=== PATIENT | female | born 1945 | race African-American/Black ===

== ENCOUNTER → 2017-03-21 | Outpatient (CLI) | payer MEDICARE ==
--- NOTE | 2017-03-21 10:46 | WOMENS IMAGING REPORT ---
EXAM DESCRIPTION: BILAT SCREENING MAMMO W/CAD COMPLETED DATE/TIME: 03/21/2017 10:29 am REASON FOR STUDY: Z12.31 ROUTINE SCREENING Z12.31 ENCNTR SCREEN MAMMOGRAM FOR MALIGNANT NEOPLASM OF KARRI COMPARISON: Annual priors dating back to November 2009. TECHNIQUE: Standard craniocaudal and mediolateral oblique views of each breast recorded using Equity Endeavora l acquisition. LIMITATIONS: None. FINDINGS: No masses, calcifications or architectural distortion. No areas of suspicion. Read with the assistance of CAD. .[facility] - R2 Cenova Version 1.3 .[facility] - R2 Cenova Version 1.3 .[facility] - R2 Cenova Version 2.4 .[facility]2 Cenova Version 2.4 .[facility] - R2 Solicitor Patent Version 9.2 IMPRESSION: NORMAL MAMMOGRAM. BIRADS 1. BREAST DENSITY: a. The breasts are almost entirely fatty. BIRAD: 1 NEGATIVE RECOMMENDATION: ROUTINE SCREENING COMMENT: The patient has been notified of the results by letter per SA requirements. Additional no tification policies are in place for contacting patient with suspicious or incomplete findings. Quality ID #[id number]: The [employer] recommends an annual screening mammogram for women aged 40 years or over. This facility utilizes a reminder system to ensure that all patients receive reminder letters, and/or direct phone calls for appointments. This includes reminders for routine scr eening mammograms, diagnostic mammograms, or other Breast Imaging Interventions when appropriate. Th is patient will be placed in the appropriate reminder system. The [employer] (ACR) has developed recommendations for screening MRI of the breast s in certain patient populations, to be used in conjunction with mammography. Breast MRI surveillanc e may be appropriate for women with more than 20% lifetime risk of developing breast cancer as deter mined by genetic testing, significant family history of the disease, or history of mantle radiation f or Hodgkins Disease. ACR Practice Guidelines 2008. TECHNICAL DOCUMENTATION: FINDING NUMBER: (1) ASSESSMENT: (1) JOB ID: [id number] Global [employer]- All Rights Reserved
== END ==
LOC: WI 07:44
PROVIDERS: ATTEND Nurse Practitioner Psychiatric/Mental Health
DX: Z12.31 Encounter for screening mammogram for malignant neoplasm of breast (principal)
CPT/HCPCS: 77067; G0202

== ENCOUNTER → 2018-04-02 | Outpatient (CLI) | payer MEDICARE ==
--- NOTE | 2018-04-02 20:01 | WOMENS IMAGING REPORT ---
EXAM DESCRIPTION: 3D SCREENING MAMMO BILAT COMPLETED DATE/TIME: 04/02/2018 8:32 am REASON FOR STUDY: ROUTINE SCREENING;Z12.31 Z12.31 ENCNTR SCREEN MAMMOGRAM FOR MALIGNANT NEOPLASM OF KARRI COMPARISON: Multiple since 2009 TECHNIQUE: Standard craniocaudal and mediolateral oblique views of each breast recorded using digita l acquisition and breast tomosynthesis. LIMITATIONS: None. FINDINGS: Findings present which are benign by mammographic criteria. No suspicious masses, calcifi cations or architectural distortion. Pertinent benign findings: Benign bilateral breast parenchymal and skin calcifications. Read with the assistance of CAD. .[facility] - R2 Cenova Version 1.3 .[facility] - R2 Cenova Version 1.3 .[facility] - R2 Cenova Version 2.4 .[facility] [place] R2 Cenova Version 2.4 .[facility] - R2 Core Maker Version 9.2 Benign mammographic findings may include one or more of the following: Smooth masses, popcorn/rim/co arse calcifications, asymmetries, post-procedure changes, and lesions with long-standing stability. IMPRESSION: BENIGN MAMMOGRAPHIC FINDINGS. BIRADS 2 BREAST DENSITY: b. There are scattered areas of fibroglandular density. BIRAD: 2 BENIGN FINDING(S) RECOMMENDATION: RECOMMENDATION: ROUTINE SCREENING Please continue yearly bilateral screening tomosynthesis in March 2019 COMMENT: The patient has been notified of the results by letter per MQSA requirements. Additional no tification policies are in place for contacting patient with suspicious or incomplete findings. Quality ID #225: The [employer] recommends an annual screening mammogram for women aged 40 years or over. This facility utilizes a reminder system to ensure that all patients receive reminder letters, and/or direct phone calls for appointments. This includes reminders for routine scr eening mammograms, diagnostic mammograms, or other Breast Imaging Interventions when appropriate. Th is patient will be placed in the appropriate reminder system. The [employer] (ACR) has developed recommendations for screening MRI of the breast s in certain patient populations, to be used in conjunction with mammography. Breast MRI surveillanc e may be appropriate for women with more than 20% lifetime risk of developing breast cancer as deter mined by genetic testing, significant family history of the disease, or history of mantle radiation f or Hodgkins Disease. ACR Practice Guidelines 2008. DBT Technology DBT is a type of tomographic mammography. With conventional mammography, overlapping breast tissue ma y make lesions difficult to detect, even with good compression. DBT uses an x-ray tube that rotates a round the breast, taking images at different angles. These images are then combined to create thin sl ices of the breast that the radiologist can view as a 3D reconstruction. The FanGager (MyBrandz) unit can perform full-field digital mammograms (2D imaging); or DBT (3D imaging); or both, in a combination mode that quickly performs both the mammogram and the tomosynthesis scan while the breast is still compressed. PQRS 6045F: Fluoroscopic imaging is not utilized for breast tomosynthesis. TECHNICAL DOCUMENTATION: FINDING NUMBER: (1) ASSESSMENT: (1) JOB ID: [id number] [employer]- All Rights Reserved Reading location - IP/workstation name: [email or web address]
== END ==
LOC: WI 08:20
PROVIDERS: ATTEND Internal Medicine Geriatric Medicine
DX: Z12.31 Encounter for screening mammogram for malignant neoplasm of breast (principal)
CPT/HCPCS: 77063; 77067

== ENCOUNTER → 2019-04-08 | Outpatient (CLI) | payer MEDICAID, MEDICARE ==
--- NOTE | 2019-04-08 16:03 | WOMENS IMAGING REPORT ---
EXAM DESCRIPTION: 3D SCREENING MAMMO BILAT COMPLETED DATE/TIME: 04/08/2019 9:56 am REASON FOR STUDY: Z12.31 ROUTINE 3D BILATERAL SCREENING Z12.31 ENCNTR SCREEN MAMMOGRAM FOR MALIGNAN T NEOPLASM OF KARRI COMPARISON: multiple since 2009 EXAM PARAMETERS: Standard craniocaudal and mediolateral oblique views of each breast recorded using digital acquisition and breast tomosynthesis. Read with the assistance of CAD. .[facility] - Synosure Games Hydrostatic Tubing Tester Version 9.2 LIMITATIONS: None. FINDINGS: Findings present which are benign by mammographic criteria. No suspicious masses, calcific ations or architectural distortion. Pertinent benign findings: Stable benign bilateral breast parenchymal calcifications Benign mammographic findings may include one or more of the following: Smooth masses, popcorn/rim/coa rse calcifications, asymmetries, post-procedure changes, and lesions with long-standing stability. IMPRESSION: BENIGN MAMMOGRAPHIC FINDINGS. BIRADS 2 BREAST DENSITY: a. The breasts are almost entirely fatty. BIRAD: ASSESSMENT: 2 BENIGN FINDING(S) RECOMMENDATION: ROUTINE SCREENING COMMENT: The patient has been notified of the results by letter per SA requirements. Additional no tification policies are in place for contacting patient with suspicious or incomplete findings. Quality ID #225: The [employer] recommends an annual screening mammogram for women aged 40 years or over. This facility utilizes a reminder system to ensure that all patients receive reminder letters, and/or direct phone calls for appointments. This includes reminders for routine scr eening mammograms, diagnostic mammograms, or other Breast Imaging Interventions when appropriate. Th is patient will be placed in the appropriate reminder system. TECHNICAL DOCUMENTATION: FINDING NUMBER: (1) ASSESSMENT: (1) JOB ID: [id number] 3D [employer]- All Rights Reserved Reading location - IP/workstation name: [email or web address]
== END ==
LOC: WI 09:04
PROVIDERS: ATTEND Internal Medicine Geriatric Medicine
DX: Z12.31 Encounter for screening mammogram for malignant neoplasm of breast (principal)
CPT/HCPCS: 77063; 77067

== ENCOUNTER → 2019-08-06 | Outpatient (CLI) | payer MEDICARE ==
[2019-08-06 14:03] LABS: ANION GAP 8 (5-19); BLOOD UREA NITROGEN 23 mg/dL (7-20); CALCIUM 9.5 mg/dL (8.4-10.2); CARBON DIOXIDE 30 mmol/L (22-30); CHLORIDE 102 mmol/L (98-107); GLUCOSE 151 mg/dL (75-110); POTASSIUM 4.3 mmol/L (3.6-5.0)
== END ==
LOC: OD 12:45
PROVIDERS: ATTEND Internal Medicine Geriatric Medicine
DX: N17.9 Acute kidney failure, unspecified (principal)
CPT/HCPCS: 36415; 80048

== ENCOUNTER → 2019-08-11 | Outpatient (CLI) | payer MEDICARE ==
--- NOTE | 2019-08-11 16:31 | RADIOLOGY REPORT (SQ) ---
EXAM DESCRIPTION: U/S RETROPERITON (RENAL/AORTA) COMPLETED DATE/TIME: 08/11/2019 4:23 pm REASON FOR STUDY: N17.9 ACUTE KIDNEY FAILURE, UNSPECIFIED N17.9 ACUTE KIDNEY FAILURE, UNSPECIFIED COMPARISON: None. TECHNIQUE: Dynamic and static grayscale images acquired of the kidneys and bladder and recorded on P ACS. Additional selected color Doppler and spectral images recorded. LIMITATIONS: None. FINDINGS: RIGHT KIDNEY: The right kidney measures 9.6 cm in length. Normal echogenicity. No roger id or suspicious masses. No hydronephrosis. No calcifications. LEFT KIDNEY: The left kidney measures 10 cm in length. Normal echogenicity. No solid or suspicio us masses. No hydronephrosis. There is a small cyst off the inferior pole. Largest diameter is 1 .8 cm. No stones. BLADDER: No masses. OTHER FINDINGS: No other significant finding. IMPRESSION: Small left renal cyst. No other significant findings. TECHNICAL DOCUMENTATION: JOB ID: [id number] [employer]- All Rights Reserved Reading location - IP/workstation name: [email or web address]
== END ==
LOC: RAD 15:13
PROVIDERS: ATTEND Internal Medicine Geriatric Medicine
DX: N17.9 Acute kidney failure, unspecified (principal); N28.1 Cyst of kidney, acquired
CPT/HCPCS: 76770

== ENCOUNTER → 2019-09-08 | Outpatient (CLI) | payer MEDICARE, MEDICAID ==
--- NOTE | 2019-09-09 08:54 | RADIOLOGY REPORT (SQ) ---
EXAM DESCRIPTION: CT ABD/PELVIS WITH IV ORAL COMPLETED DATE/TIME: 09/08/2019 4:01 pm REASON FOR STUDY: R10.32 LEFT LOWER QUADRANT PAIN R10.32 LEFT LOWER QUADRANT PAIN COMPARISON: Renal ultrasound 08/11/2019 Right upper quadrant ultrasound 08/14/2015 TECHNIQUE: CT scan of the abdomen and pelvis performed using helical scanning technique with dynamic intravenous contrast injection. Patient drank oral contrast. Images reviewed with lung, soft tissue , and bone windows. Reconstructed coronal and sagittal MPR images reviewed. Delayed images for evalua tion of the urinary system also acquired. All images stored on PACS. All CT scanners at this facility use dose modulation, iterative reconstruction, and/or weight based d osing when appropriate to reduce radiation dose to as low as reasonably achievable (ALARA). [facility]: Dose Right [facility]: CareDose [facility]: Dose Right [facility]: Teradose 4D [facility]: Chalkfly CONTRAST TYPE AND DOSE: contrast/concentration: Isovue 350.00 mg/ml; Total Contrast Delivered: 94.0 ml; Total Saline Delivered: 71.0 ml RENAL FUNCTION: Creatinine 0.9 RADIATION DOSE: CT Rad equipment meets quality standard of care and radiation dose reduction techniq ues were employed. CTDIvol: 19.3 - 19.4 mGy. DLP: 1901 mGy-cm.. LIMITATIONS: None. FINDINGS: LOWER CHEST: No significant findings. No nodules or infiltrates. LIVER: Normal size. No masses. No dilated ducts. SPLEEN: Normal size. No focal lesions. PANCREAS: No masses. No significant calcifications. No adjacent inflammation or peripancreatic fluid collections. Pancreatic duct not dilated. GALLBLADDER: No identified stones by CT criteria. No inflammatory changes to suggest cholecystitis. ADRENAL GLANDS: No significant masses or asymmetry. RIGHT KIDNEY AND URETER: No solid masses. No significant calcifications. No hydronephrosis or hyd roureter. LEFT KIDNEY AND URETER: No solid masses. Less than 1 cm cyst left mid pole kidney, 2 cm diameter cys t left lower pole kidney. No significant calcifications. No hydronephrosis or hydroureter. AORTA AND VESSELS: No aneurysm. No dissection. Renal arteries, SMA, celiac without stenosis. RETROPERITONEUM: No retroperitoneal adenopathy, hemorrhage or masses. BOWEL AND PERITONEAL CAVITY: Patient drank oral contrast. No masses or inflammatory changes. No yao e fluid or peritoneal masses. No bowel obstruction. Moderate stool throughout the colon. APPENDIX: Normal. PELVIS: No mass. No free fluid. Normal bladder. Post hysterectomy and right oophorectomy. Normal s ize left ovary adjacent to the left internal iliac vessels on axial image 63 ABDOMINAL WALL: No masses. No hernias. BONES: Advanced degenerative disc changes with significant central canal stenosis at L1-2 and L3-4. OTHER: No other significant finding. IMPRESSION: Advanced degenerative changes in the lumbar spine. Post hysterectomy and right oophorectomy. Left renal cortical cysts. Otherwise unremarkable study. TECHNICAL DOCUMENTATION: JOB ID: [id number] Quality ID # [id number]: Final reports with documentation of one or more dose reduction techniques (e.g., Au tomated exposure control, adjustment of the mA and/or kV according to patient size, use of iterative reconstruction technique) 2010 [employer]- All Rights Reserved Reading location - IP/workstation name: [email or web address]
== END ==
LOC: RAD 15:09
PROVIDERS: ATTEND Internal Medicine Geriatric Medicine
DX: N28.1 Cyst of kidney, acquired (principal); R10.32 Left lower quadrant pain
CPT/HCPCS: 74177; 82565

== ENCOUNTER → 2019-09-28 | Outpatient (CLI) | payer MEDICAID, MEDICARE ==
--- NOTE | 2019-09-28 13:10 | RADIOLOGY REPORT (SQ) ---
EXAM DESCRIPTION: CAROTID DOPPLER COMPLETED DATE/TIME: 09/28/2019 12:18 pm REASON FOR STUDY: PVD I73.9 PERIPHERAL VASCULAR DISEASE, UNSPECIFIED COMPARISON: None. TECHNIQUE: Grayscale ultrasound, Doppler velocity and spectra, and color Doppler images acquired of the extra-cranial carotid and vertebral arteries. Images stored on PACS. LIMITATIONS: None. FINDINGS: RIGHT CAROTID CCA Velocities: Within normal limits. ICA Velocities Peak systolic 56 cm/s. End diastolic 20 cm/s. Proximal ICA/CCA peak systolic ratio 1.07. Spectra normal. No significant plaque. LEFT CAROTID CCA Velocities: Within normal limits. ICA Velocities Peak systolic 38 cm/s. End diastolic 13 cm/s. Proximal ICA/CCA peak systolic ratio 0.9. Spectra normal. No significant plaque. VERTEBRAL ARTERIES: Antegrade flow. Normal waveform. SUBCLAVIAN ARTERIES: Not imaged OTHER: No other significant finding. IMPRESSION: NO HEMODYNAMICALLY SIGNIFICANT STENOSIS. COMMENT: Quality ID #195: Velocity criteria are extrapolated from the diameter data as defined by t he Society of Radiologists in Ultrasound Consensus Conference. Radiology 2003: 229; 340-346. TECHNICAL DOCUMENTATION: JOB ID: [id number] [employer]- All Rights Reserved Reading location - IP/workstation name: [email or web address]
--- NOTE | 2019-09-29 07:19 | XCELERA REPORT ---
[address] [address] Lower Extremity Arterial Evaluation Name: KUMAR BENJAMIN Age: 73 yrs Gender: Female : 1945 Patient Status: Outpatient Patient Location: [facility] Study Date: 09/28/2019 12:15 PM Procedure: A color flow and duplex scan of the lower extremity arteries was performed bilaterally with velocity and waveform anaylsis. Reason For Study: PVD Ordering Physician: IVAN WHEELER Performed By: Ashley Riley Measurements and Calculations Right Left Prox PFA PSV 70.2 67.2 cm/sec Prox SFA PSV 77.5 89.0 cm/sec Mid SFA PSV 77.2 91.1 cm/sec Dist SFA PSV 85.2 83.0 cm/sec Prox Pop A PSV 55.7 81.2 cm/sec Mid MARIANO PSV 90.4 67.8 cm/sec Mid COATER PSV 40.3 32.9 cm/sec Right Side Arterial Evaluation Vessel wall calcification in the Femoral and Posterior tibial arteries noted Normal velocity and triphasic waveforms noted from the Common Femoral artery to the infrageniculate vessels . Biphasic with normal velocity in the Deep Femoral . Ankle Brachial index not obtained. Left Side Arterial Evaluation Vessel wall calcification in the Femoral and Posterior tibial arteries noted Normal velocity and triphasic waveforms noted from the Common Femoral artery to the infrageniculate vessels . Biphasic with normal velocity in the Deep Femoral . Ankle Brachial index not obtained. Interpretation Summary Mild hemodynamically significant lesions in the bilateral lower extremities, on duplex imaging, at rest. Duplex findings significant for mild changes in the Deep Femoral. Vessel wall calcification in the Femoral and Posterior tibial arteries noted.. indicating Atherosclerosis. : IVAN WHEELER > Mark Chau
== END ==
LOC: SP 10:36
PROVIDERS: ATTEND Internal Medicine Geriatric Medicine
DX: I73.9 Peripheral vascular disease, unspecified (principal)
CPT/HCPCS: 93880; 93925

== ENCOUNTER 2019-12-05 13:42 | Emergency (ER) | payer MEDICARE ==
--- NOTE | 2019-12-05 13:50 | ER Document Report ---
ED Medical Screen (RME) - General Chief Complaint: Back Pain Stated Complaint: BACK PAIN Time Seen by Provider: 12/05/19 13:48 Primary Care Provider: IVAN WHEELER MD [Primary Care Provider] - Follow up as needed Notes: 74 y/o female presents with left flank pain, odor to urine, nausea/vomiting, and malaise for 1 week. Pt states she has chronic low back pain but it is usually in the middle. No spinal tenderness. Mild left CVA tenderness. Abd soft, nontender. I have greeted and performed a rapid initial assessment of this patient. A comprehensive ED assessment and evaluation of the patient, analysis of test results and completion of the medical decision making process with be conducted by additional ED providers. TRAVEL OUTSIDE OF THE [place] IN LAST 30 DAYS: No - Related Data Allergies/Adverse Reactions: codeine [Codeine] Adverse Reaction (Severe, Verified 12/05/19 13:49) Vomiting aspirin [Aspirin] Adverse Reaction (Intermediate, Verified 12/05/19 13:49) Vomiting hydrocodone [Hydrocodone] Adverse Reaction (Intermediate, Verified 12/05/19 13:49) nausea vomitting lisinopril [Lisinopril] Adverse Reaction (Intermediate, Verified 12/05/19 13:49) sneezing coughing rosuvastatin calcium [From Crestor] Adverse Reaction (Intermediate, Verified 12/05/19 13:49) muscle weakness Sulfa (Sulfonamide Antibiotics) Adverse Reaction (Intermediate, Verified 12/05/19 13:49) Vomiting Past Medical History - Past Medical History Cardiac Medical History: Reports: Hx Hypertension Denies: Hx Coronary Artery Disease, Hx Heart Attack Pulmonary Medical History: Reports: Hx Bronchitis Denies: Hx Asthma, Hx COPD, Hx Pneumonia Neurological Medical History: Denies: Hx Cerebrovascular Accident, Hx Seizures Endocrine Medical History: Reports: Hx Diabetes Mellitus Type 2 GI Medical History: Denies: Hx Hepatitis, Hx Hiatal Hernia, Hx Ulcer Musculoskeltal Medical History: 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 Denies: Hx Mastectomy, Hx Open Heart Surgery, Hx Pacemaker - Immunizations Hx Diphtheria, Pertussis, Tetanus Vaccination: Yes Doctor's Discharge - Discharge Referrals: IVAN WHEELER MD [Primary Care Provider] - Follow up as needed
[2019-12-05 14:18] LABS: ABSOLUTE BASOPHILS # (AUTO) 0.1 10^3/uL (0.0-0.2); ABSOLUTE EOSINOPHILS # (AUTO) 0.2 10^3/uL (0.0-0.6); ABSOLUTE LYMPHOCYTES (AUTO) 2.7 10^3/uL (0.5-4.7); ABSOLUTE MONOCYTES (AUTO) 0.7 10^3/uL (0.1-1.4); BASOPHILS % (AUTO) 1.3 % (0-2); EOSINOPHILS % (AUTO) 2.2 % (0-6); HEMATOCRIT 39.3 % (36.0-47.0); HEMOGLOBIN 13.6 g/dL (12.0-15.5); LYMPHOCYTES % (AUTO) 35.5 % (13-45); MEAN CORPUSCULAR HEMOGLOBIN 29.4 pg (27.0-33.4); MEAN CORPUSCULAR HGB CONC 34.6 g/dL (32.0-36.0); MEAN CORPUSCULAR VOLUME 85 fl (80-97); MONOCYTES % (AUTO) 9.1 % (3-13); PLATELET COUNT 238 10^3/uL (150-450); RED BLOOD COUNT 4.63 10^6/uL (3.72-5.28); RED CELL DISTRIBUTION WIDTH 12.7 % (11.5-14.0); SEGMENTED NEUTROPHILS % (AUTO) 51.9 % (42-78); TOTAL CELLS COUNTED % (AUTO) 100 %; WHITE BLOOD COUNT 7.7 10^3/uL (4.0-10.5)
--- NOTE | 2019-12-05 14:21 | ER Document Report ---
ED General - General Chief Complaint: Flank Pain Stated Complaint: BACK PAIN Time Seen by Provider: 12/05/19 13:48 Primary Care Provider: IVAN WHEELER MD [Primary Care Provider] - Follow up as needed Mode of Arrival: Ambulatory Information source: Patient Notes: 74-year-old female with chief complaint of 1 week history of left hip pain left flank pain with radiation down left lower extremity and arrives with her sister and daughter with chief complaint of pain to her left flank which increases on inspiration rotation flexion extension of her torso. Patient denies any trauma abuse or kidney stones. Her grandmother did have kidney stones beginning when she was 40 but patient denies any prior history of kidney stones in the past. She denies any dysuria and denies any hematuria and denies any fever and chills TRAVEL OUTSIDE OF THE [place] IN LAST 30 DAYS: No - HPI Onset: This morning - Patient reports the pain awoke her at 05 30 despite 3 Tylenol extended release tablets and Aleve; was initially began around 1 week ago but have worsened. Quality of pain: Sharp Severity: Severe Pain Level: 5 Associated symptoms: Hurts to breath, Other - Pain on movement of left flank extension flexion rotation left CVA area Exacerbated by: Sitting, Standing, Movement, Walking, Deep breathing Relieved by: Remaining still Similar symptoms previously: No Recently seen / treated by doctor: No - Related Data Allergies/Adverse Reactions: codeine [Codeine] Adverse Reaction (Severe, Verified 12/05/19 13:49) Vomiting aspirin [Aspirin] Adverse Reaction (Intermediate, Verified 12/05/19 13:49) Vomiting hydrocodone [Hydrocodone] Adverse Reaction (Intermediate, Verified 12/05/19 13:49) nausea vomitting lisinopril [Lisinopril] Adverse Reaction (Intermediate, Verified 12/05/19 13:49) sneezing coughing rosuvastatin calcium [From Crestor] Adverse Reaction (Intermediate, Verified 12/05/19 13:49) muscle weakness Sulfa (Sulfonamide Antibiotics) Adverse Reaction (Intermediate, Verified 12/05/19 13:49) Vomiting Home Medications: levocetrizine. irbesartan. metformin. rosuvastatin. januvia. omeprazole. meclizine Past Medical History - General Information source: Patient - Social History Smoking Status: Never Smoker Cigarette use (# per day): No Chew tobacco use (# tins/day): No Smoking Education Provided: No Frequency of alcohol use: None Drug Abuse: None Lives with: Family Family History: Reviewed & Not Pertinent Patient has suicidal ideation: No Patient has homicidal ideation: No - Past Medical History Cardiac Medical History: Reports: Hx Hypertension Denies: Hx Coronary Artery Disease, Hx Heart Attack Pulmonary Medical History: Reports: Hx Bronchitis Denies: Hx Asthma, Hx COPD, Hx Pneumonia Neurological Medical History: Denies: Hx Cerebrovascular Accident, Hx Seizures Endocrine Medical History: Reports: Hx Diabetes Mellitus Type 2 GI Medical History: Denies: Hx Hepatitis, Hx Hiatal Hernia, Hx Ulcer Musculoskeletal Medical History: 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 Denies: Hx Mastectomy, Hx Open Heart Surgery, Hx Pacemaker - Immunizations Hx Diphtheria, Pertussis, Tetanus Vaccination: Yes Hx Pneumococcal Vaccination: 07/20/15 Review of Systems - Review of Systems Constitutional: See HPI, Weakness EENT: No symptoms reported Cardiovascular: No symptoms reported Respiratory: No symptoms reported Gastrointestinal: No symptoms reported Genitourinary: No symptoms reported Female Genitourinary: No symptoms reported Musculoskeletal: See HPI, Back pain, Other - left cva pain Skin: No symptoms reported Hematologic/Lymphatic: No symptoms reported Neurological/Psychological: No symptoms reported Physical Exam - Vital signs Interpretation: Normal - General General appearance: Alert In distress: Mild - HEENT Head: Normocephalic Eyes: Normal Conjunctiva: Normal Cornea: Normal Extraocular movements intact: Yes Eyelashes: Normal Pupils: PERRL Ears: Normal Sinus: Normal Nasal: Normal Mouth/Lips: Normal Mucous membranes: Normal Pharynx: Normal Neck: Normal - Respiratory Respiratory status: No respiratory distress Chest status: Nontender Breath sounds: Normal Chest palpation: Normal - Cardiovascular Rhythm: Regular Heart sounds: Normal auscultation Murmur: No Friction rub: No Doug's crunch: No - Abdominal Inspection: Normal Distension: No distension Bowel sounds: Normal Tenderness: Nontender Organomegaly: No organomegaly - Back Back: Normal - Extremities General upper extremity: Normal inspection General lower extremity: Normal inspection - Neurological Neuro grossly intact: Yes Cognition: Normal Orientation: AAOx4 Sofya Coma Scale Eye Opening: Spontaneous Brownell Coma Scale Verbal: Oriented Sofya Coma Scale Motor: Obeys Commands Brownell Coma Scale Total: 15 Speech: Normal Cranial nerves: Normal Motor strength normal: LUE, RUE, LLE, RLE 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 Sensory: Normal Course - Laboratory Result Diagrams: 12/05/19 14:07 12/05/19 14:07 Laboratory results interpreted by me: 12/05/19 12/05/19 14:07 14:07 Glucose 155 H AST 51 H ALT 56 H Urine Protein 30 H Urine Glucose (UA) 50 H Urine Nitrite (Reflex) POSITIVE H Leukocyte Esterase Rfl TRACE H Urine Ascorbic Acid 40 H - Diagnostic Test Radiology reviewed: Reports reviewed Critical Care Note - Critical Care Note Total time excluding time spent on procedures (mins): 90 Discharge - Discharge Clinical Impression: Flank pain Muscle strain of left upper back Qualifiers: Encounter type: initial encounter Qualified Code(s): S29.012A - Strain of muscle and tendon of back wall of thorax, initial encounter Condition: Good Disposition: HOME, SELF-CARE Additional Instructions: follow up with personal doctor this week and avoid bending twisting ; take medicines as directed Prescriptions: Diclofenac Sodium 100 gm TP BID PRN #100 gel..gram. PRN Reason: Chlorzoxazone [Parafon Forte Dsc 500 Mg Tablet] 500 mg PO BID PRN #20 tablet PRN Reason: Referrals: IVAN WHEELER MD [Primary Care Provider] - Follow up as needed
[2019-12-05] MEDS ORDERED: KETOROLAC TROMETHAMINE 60 MG/2 ML SDV IM ONE (14:30)
[2019-12-05] MEDS ORDERED: DEXAMETHASONE SOD PHOS INJ 10 MG/1 ML VIAL IM ONE (14:31)
[2019-12-05 14:33] LABS: ALBUMIN 4.2 g/dL (3.5-5.0); ALKALINE PHOSPHATASE 99 U/L (38-126); ANION GAP 7 (5-19); ASPARTATE AMINO TRANSFERASE 51 U/L (14-36); BILIRUBIN,DIRECT 0.1 mg/dL (0.0-0.4); BILIRUBIN,TOTAL 0.5 mg/dL (0.2-1.3); BLOOD UREA NITROGEN 15 mg/dL (7-20); CALCIUM 9.6 mg/dL (8.4-10.2); CARBON DIOXIDE 30 mmol/L (22-30); CHLORIDE 102 mmol/L (98-107); GLUCOSE 155 mg/dL (75-110); POTASSIUM 4.2 mmol/L (3.6-5.0)
[2019-12-05] MEDS ORDERED: HYDROMORPHONE HCL INJ/PF 2 MG/ML AMPULE IM PRN (14:33)
[2019-12-05] MEDS ORDERED: PROMETHAZINE HCL INJ 25 MG/1 ML VIAL IM ONE (14:34)
[2019-12-05 14:47] LABS: APPEARANCE,URINE SLIGHTLY-CLOUDY; BILIRUBIN,URINE NEGATIVE (NEGATIVE); COLOR,URINE YELLOW; GLUCOSE, URINE 50 mg/dL (NEGATIVE); KETONES,URINE NEGATIVE (NEGATIVE); PROTEIN,URINE 30 mg/dL (NEGATIVE); URINE SPECIFIC GRAVITY 1.018; UROBILINOGEN,URINE NEGATIVE mg/dL (<2.0)
[2019-12-05] MEDS ORDERED: HYDROMORPHONE HCL INJ/PF 2 MG/ML AMPULE IV PRN (15:18)
[2019-12-05] MEDS ORDERED: DEXAMETHASONE SOD PHOS INJ 10 MG/1 ML VIAL IV ONE (15:22)
[2019-12-05] MEDS ORDERED: PROMETHAZINE HCL INJ 25 MG/1 ML VIAL IV ONE (15:22)
[2019-12-05] MEDS ORDERED: KETOROLAC TROMETHAMINE INJ/PF 30 MG/1 ML SDV IV ONE (15:22)
--- NOTE | 2019-12-05 15:31 | RADIOLOGY REPORT (SQ) ---
EXAM DESCRIPTION: CT ABD/PELVIS NO ORAL OR IV COMPLETED DATE/TIME: 12/05/2019 3:15 pm REASON FOR STUDY: pain COMPARISON: 2019 TECHNIQUE: CT scan of the abdomen and pelvis performed without intravenous or oral contrast. Images reviewed with lung, soft tissue, and bone windows. Reconstructed coronal and sagittal MPR images revi ewed. All images stored on PACS. All CT scanners at this facility use dose modulation, iterative reconstruction, and/or weight based d osing when appropriate to reduce radiation dose to as low as reasonably achievable (ALARA). [facility]: Dose Right [facility]: CareDose [facility]: Dose Right [facility]: Teradose 4D [facility]: [employer] RADIATION DOSE: CT Rad equipment meets quality standard of care and radiation dose reduction techniq ues were employed. CTDIvol: 16.6 mGy. DLP: 825 mGy-cm.mGy. LIMITATIONS: None. FINDINGS: LOWER CHEST: No significant findings. No nodules or infiltrates. NON-CONTRASTED LIVER, SPLEEN, ADRENALS: Evaluation limited by lack of IV contrast. No identified sign ificant masses. PANCREAS: No masses. No peripancreatic inflammatory changes. GALLBLADDER: No identified stones by CT criteria. No inflammatory changes to suggest cholecystitis. RIGHT KIDNEY AND URETER: No solid masses. No significant calcification. No hydronephrosis or hydroure ter. LEFT KIDNEY AND URETER: No solid masses. No significant calcification. No hydronephrosis or hydrouret er. AORTA AND RETROPERITONEUM: No aneurysm. No retroperitoneal masses or adenopathy. BOWEL AND PERITONEAL CAVITY: Moderate stool. No wall thickening or bowel obstruction. No ascites or abnormal gas. APPENDIX: Normal. PELVIS, BLADDER, AND ABDOMINAL WALL:No abnormal masses. No free fluid. Bladder normal. BONES: Pronounced lumbar spondylosis. Scoliosis with disc and facet disease throughout. No fracture or worrisome bone lesion. OTHER: No other significant finding. IMPRESSION: NO SIGNIFICANT OR ACUTE PROCESS IN THE ABDOMEN OR PELVIS. TECHNICAL DOCUMENTATION: JOB ID: [id number] Quality ID # [id number]: Final reports with documentation of one or more dose reduction techniques (e.g., Au tomated exposure control, adjustment of the mA and/or kV according to patient size, use of iterative reconstruction technique) 2010 [employer]- All Rights Reserved Reading location - IP/workstation name: [email or web address]
--- NOTE | 2019-12-05 15:32 | RADIOLOGY REPORT (SQ) ---
EXAM DESCRIPTION: HIP LEFT AP/LATERAL COMPLETED DATE/TIME: 12/05/2019 3:15 pm REASON FOR STUDY: pain COMPARISON: None. NUMBER OF VIEWS: Two views left hip LIMITATIONS: None. FINDINGS: Osteopenic. SI joints intact. Mild right hip joint space narrowing. Mild degenerative s purring in the left acetabulum. Mild osteitis pubis. No fracture or bone lesion. OTHER: No other significant finding. IMPRESSION: As above. TECHNICAL DOCUMENTATION: JOB ID: [id number] Reading location - IP/workstation name: [email or web address]
[2019-12-05 17:52] VITALS: BP 155/71
== END 2019-12-05 17:52 | disposition home or self-care (01) ==
LOC: ER 13:42
DX: S29.012A Strain of muscle and tendon of back wall of thorax, initial encounter (principal); R10.9 Unspecified abdominal pain; M54.9 Dorsalgia, unspecified; M25.552 Pain in left hip; M79.605 Pain in left leg; X58.XXXA Exposure to other specified factors, initial encounter; I10 Essential (primary) hypertension; E11.9 Type 2 diabetes mellitus without complications; Z88.8 Allergy status to other drugs, medicaments and biological substances; Z88.2 Allergy status to sulfonamides
CPT/HCPCS: 36415; 83690; 85025; 80053; 81001; 73502; 74176; J1885; J2550; J1100; 96374; 96375; 99291; 99292

== ENCOUNTER → 2020-04-01 | Outpatient (CLI) | payer MEDICARE ==
--- NOTE | 2020-04-01 11:54 | RADIOLOGY REPORT (SQ) ---
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 TECHNIQUE: CT scanogram of the bilateral lower extremities is performed including pelvis to ankles. Measurements of femur, tibia, and entire lower extremities performed by the radiologist and saved to PACS. All CT scanners at this facility use dose modulation, iterative reconstruction, and/or weight based d osing when appropriate to reduce radiation dose to as low as reasonably achievable (ALARA). [facility]: Dose Right [facility]: CareDose [facility]: Dose Right [facility]: Teradose 4D [facility]: [employer] RADIATION DOSE: mGy. LIMITATIONS: None. FINDINGS: RIGHT: FEMUR: 39.1 cm. TIBIA: 32.8 cm. TOTAL RIGHT LOWER EXTREMITY LENGTH: 72.1 cm. LEFT: FEMUR: 39.5 cm. TIBIA: 32.7 cm. TOTAL LEFT LOWER EXTREMITY LENGTH: 72.5 cm. IMPRESSION: LEG LENGTH MEASUREMENTS DETAILED ABOVE. TECHNICAL DOCUMENTATION: JOB ID: [id number] Quality ID # [id number]: Final reports with documentation of one or more dose reduction techniques (e.g., Au tomated exposure control, adjustment of the mA and/or kV according to patient size, use of iterative reconstruction technique) 2010 [employer]- All Rights Reserved Reading location - IP/workstation name: [email or web address]
== END ==
LOC: RAD 10:10
PROVIDERS: ATTEND Podiatrist Foot & Ankle Surgery
DX: Q72.819 Congenital shortening of unspecified lower limb (principal)
CPT/HCPCS: 77073

== ENCOUNTER 2020-04-17 12:53 | Inpatient (IN) | payer MEDICARE ==
[2020-04-17 15:45] LABS: ABSOLUTE LYMPHOCYTES (AUTO) 1.5 10^3/uL (0.5-4.7); ABSOLUTE MONOCYTES (AUTO) 0.7 10^3/uL (0.1-1.4); BASOPHILS % (AUTO) 0.8 % (0-2); LYMPHOCYTES % (AUTO) 23.7 % (13-45); MEAN CORPUSCULAR HEMOGLOBIN 28.7 pg (27.0-33.4); MEAN CORPUSCULAR HGB CONC 34.3 g/dL (32.0-36.0); MEAN CORPUSCULAR VOLUME 84 fl (80-97); MONOCYTES % (AUTO) 10.6 % (3-13); PLATELET COUNT 179 10^3/uL (150-450); RED BLOOD COUNT 4.54 10^6/uL (3.72-5.28); RED CELL DISTRIBUTION WIDTH 13.2 % (11.5-14.0); SEGMENTED NEUTROPHILS % (AUTO) 64.9 % (42-78); TOTAL CELLS COUNTED % (AUTO) 100 %; WHITE BLOOD COUNT 6.1 10^3/uL (4.0-10.5)
[2020-04-17 16:00] LABS: ALKALINE PHOSPHATASE 70 U/L (38-126); ANION GAP 9 (5-19); ASPARTATE AMINO TRANSFERASE 39 U/L (14-36); BILIRUBIN,TOTAL 0.5 mg/dL (0.2-1.3); BLOOD UREA NITROGEN 19 mg/dL (7-20); CALCIUM 8.9 mg/dL (8.4-10.2); CARBON DIOXIDE 32 mmol/L (22-30); CHLORIDE 95 mmol/L (98-107); GLUCOSE 85 mg/dL (75-110); POTASSIUM 3.8 mmol/L (3.6-5.0); TOTAL PROTEIN 7.8 g/dL (6.3-8.2)
--- NOTE | 2020-04-17 16:08 | RADIOLOGY REPORT (SQ) ---
EXAM DESCRIPTION: CHEST SINGLE VIEW IMAGES COMPLETED DATE/TIME: 04/17/2020 4:00 pm REASON FOR STUDY: shortness of breath COMPARISON: None. EXAM PARAMETERS: NUMBER OF VIEWS: One view. TECHNIQUE: Single frontal radiographic view of the chest acquired. RADIATION DOSE: NA LIMITATIONS: Low lung volumes. FINDINGS: LUNGS AND PLEURA: Minimal airspace disease in the periphery of the left upper lobe. Lung moses are otherwise clear. Elevated right hemidiaphragm. MEDIASTINUM AND HILAR STRUCTURES: No masses. Contour normal. HEART AND VASCULAR STRUCTURES: Heart normal in size. Normal vasculature. BONES: No acute findings. HARDWARE: None in the chest. OTHER: No other significant finding. IMPRESSION: Mild asymmetric airspace disease in the periphery of the left upper lobe. Low lung volu mes. TECHNICAL DOCUMENTATION: JOB ID: [id number] 2010 [employer]- All Rights Reserved Reading location - IP/workstation name: [email or web address]
[2020-04-17 16:11] LABS: CREATINE KINASE MB 1.32 ng/mL (<4.55)
[2020-04-17 16:14] LABS: TROPONIN I 0.202 ng/mL
[2020-04-17] MEDS ORDERED: ASPIRIN 81 MG TABLET, CHEWABLE PO ONE (16:36)
[2020-04-17] MEDS ORDERED: ASPIRIN 81 MG TABLET, CHEWABLE ONE (16:37)
--- NOTE | 2020-04-17 17:34 | EKG REPORT ---
SEVERITY:- ABNORMAL ECG - SINUS RHYTHM CONSIDER LEFT VENTRICULAR HYPERTROPHY : Confirmed by: Belkis Zambrano MD 17-Apr-2020 17:33:29
[2020-04-17] MEDS ORDERED: AZITHROMYCIN 250 MG TABLET PO ONE (18:39)
[2020-04-17] MEDS ORDERED: CEFTRIAXONE 2 GM/D5W RTU 2 GM/50 ML RTUPB IV ONE (18:39)
--- NOTE | 2020-04-17 18:45 | ER Document Report ---
ED General - General Chief Complaint: Breathing Difficulty Stated Complaint: SHORTNESS OF BREATH Time Seen by Provider: 04/17/20 18:01 Primary Care Provider: ROGER FOUNTAIN DPM [Primary Care Provider] - Follow up as needed Mode of Arrival: Ambulatory Information source: Patient TRAVEL OUTSIDE OF THE [place] IN LAST 30 DAYS: No - HPI Notes: Patient presents with cough cold congestion and fever. She also has generalized body aches and weakness. This is been going on for approximately 3 to 4 days. She has no known COVID virus exposures but she was recently at a within the last week with many out-of-town visitors. Her body aches are generalized. They are mild to moderate. They radiate throughout her body. They are worse with movement and better with rest. She is also had a nonproductive cough. - Related Data Allergies/Adverse Reactions: codeine [Codeine] Adverse Reaction (Severe, Verified 12/05/19 13:49) Vomiting aspirin [Aspirin] Adverse Reaction (Intermediate, Verified 12/05/19 13:49) Vomiting hydrocodone [Hydrocodone] Adverse Reaction (Intermediate, Verified 12/05/19 13:49) nausea vomitting lisinopril [Lisinopril] Adverse Reaction (Intermediate, Verified 12/05/19 13:49) sneezing coughing rosuvastatin calcium [From Crestor] Adverse Reaction (Intermediate, Verified 12/05/19 13:49) muscle weakness Sulfa (Sulfonamide Antibiotics) Adverse Reaction (Intermediate, Verified 12/05/19 13:49) Vomiting Past Medical History - General Information source: Patient - Social History Smoking Status: Never Smoker Frequency of alcohol use: None Drug Abuse: None Family History: Reviewed & Not Pertinent Patient has homicidal ideation: No - Past Medical History Cardiac Medical History: Reports: Hx Hypertension Denies: Hx Coronary Artery Disease, Hx Heart Attack Pulmonary Medical History: Reports: Hx Bronchitis Denies: Hx Asthma, Hx COPD, Hx Pneumonia Neurological Medical History: Denies: Hx Cerebrovascular Accident, Hx Seizures Endocrine Medical History: Reports: Hx Diabetes Mellitus Type 2 GI Medical History: Denies: Hx Hepatitis, Hx Hiatal Hernia, Hx Ulcer Musculoskeletal Medical History: 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 Denies: Hx Mastectomy, Hx Open Heart Surgery, Hx Pacemaker - Immunizations Hx Diphtheria, Pertussis, Tetanus Vaccination: Yes Hx Pneumococcal Vaccination: 07/20/15 Review of Systems - Review of Systems Constitutional: Chills, Fever, Malaise, Weakness Cardiovascular: denies: Chest pain, Palpitations Respiratory: Cough, Short of breath -: Yes All other systems reviewed and negative Physical Exam - Vital signs Vitals: Temp Pulse Resp BP Pulse Ox 99.8 F 91 16 142/58 H 93 04/17/20 14:39 04/17/20 14:39 04/17/20 14:39 04/17/20 14:39 04/17/20 14:39 Interpretation: Hypoxic, Febrile - General General appearance: Alert In distress: None - HEENT Head: Normocephalic, Atraumatic Eyes: Normal Pupils: PERRL - Respiratory Respiratory status: No respiratory distress Chest status: Nontender Breath sounds: Normal Chest palpation: Normal - Cardiovascular Rhythm: Regular Heart sounds: Normal auscultation Murmur: No - Abdominal Inspection: Normal Distension: No distension Bowel sounds: Normal Tenderness: Nontender Organomegaly: No organomegaly - Back Back: Normal, Nontender - Extremities General upper extremity: Normal inspection, Nontender, Normal color, Normal ROM, Normal temperature General lower extremity: Normal inspection, Nontender, Edema - 1+ bilaterally, Normal color, Normal ROM, Normal temperature. No: Shorty's sign - Neurological Neuro grossly intact: Yes Cognition: Normal Orientation: AAOx4 [place] Coma Scale Eye Opening: Spontaneous [place] Coma Scale Verbal: Oriented [place] Coma Scale Motor: Obeys Commands [place] Coma Scale Total: 15 Speech: Normal Motor strength normal: LUE, RUE, LLE, RLE Sensory: Normal - Psychological Associated symptoms: Normal affect, Normal mood - Skin Skin Temperature: Warm Skin Moisture: Dry Skin Color: Normal Course - Re-evaluation Re-evalutation: 04/17/20 18:43 Patient presents with cough body aches and fever. X-ray shows a possible left upper lobe pneumonia. This seems a likely diagnosis this patient has hypoxic with URI symptoms. Troponin is elevated but there is no previous troponin to compare this to. She is not currently having chest pain. She has no ischemic changes on EKG. She will require serial troponins. She also have a rapid troponin obtained. I have spoke with the PCP, Dr. Dumont. She will be placed in the IMCU. She will be treated with antibiotics. Blood cultures and lactic acid have been obtained. Her vital signs are stable at this time. She has better saturations on nasal cannula. - Vital Signs Vital signs: Temp Pulse Resp BP Pulse Ox 100.4 F 83 17 165/84 H 100 04/17/20 15:31 04/17/20 16:49 04/17/20 16:49 04/17/20 16:49 04/17/20 16:49 - Laboratory Result Diagrams: 04/17/20 15:26 04/17/20 15:26 Laboratory results interpreted by me: 04/17/20 15:26 Sodium 135.7 L Chloride 95 L Carbon Dioxide 32 H AST 39 H - Diagnostic Test Radiology reviewed: Image reviewed, Reports reviewed - EKG Interpretation by Mn EKG shows normal: Sinus rhythm Rate: Normal - 82 Rhythm: NSR Voltage: Consistant with LVH Discharge - Discharge Clinical Impression: Hypoxemia Pneumonia Qualifiers: Pneumonia type: due to unspecified organism Laterality: left Lung location: upper lobe of lung Qualified Code(s): J18.9 - Pneumonia, unspecified organism Condition: Serious Disposition: ADMITTED INPATIENT Admitting Provider: Tim Unit Admitted: IMCU Referrals: ROGER FOUNTAIN DPM [Primary Care Provider] - Follow up as needed
[2020-04-18] MEDS ORDERED: LOSARTAN POTASSIUM 50 MG TABLET PO SCH (04:15)
[2020-04-18] MEDS ORDERED: DOXYCYCLINE HYCLATE 100 MG in DEXTROSE 5%-WATER 250 ML IV SCH ×3 (04:15→18:00)
[2020-04-18] MEDS: LOSARTAN POTASSIUM 50 MG TABLET PO SCH (05:40)
[2020-04-18] MEDS: ACETAMINOPHEN 325 MG TABLET PO PRN ×4 (05:43→21:29)
[2020-04-18] MEDS ORDERED: VANCOMYCIN HCL INJ 1000 MG VIAL ONE (05:51)
[2020-04-18] MEDS ORDERED: DOXYCYCLINE HYCLATE INJ 100 MG VIAL ONE (06:06)
[2020-04-18 06:43] LABS: ABSOLUTE LYMPHOCYTES (AUTO) 0.8 10^3/uL (0.5-4.7); ABSOLUTE MONOCYTES (AUTO) 0.4 10^3/uL (0.1-1.4); ABSOLUTE NEUT (AUTO) 4.1 10^3/uL (1.7-8.2); BASOPHILS % (AUTO) 0.3 % (0-2); EOSINOPHILS % (AUTO) 0.1 % (0-6); HEMOGLOBIN 12.2 g/dL (12.0-15.5); LYMPHOCYTES % (AUTO) 15.2 % (13-45); MEAN CORPUSCULAR HEMOGLOBIN 28.8 pg (27.0-33.4); MEAN CORPUSCULAR VOLUME 85 fl (80-97); MONOCYTES % (AUTO) 8.1 % (3-13); PLATELET COUNT 156 10^3/uL (150-450); RED BLOOD COUNT 4.25 10^6/uL (3.72-5.28); RED CELL DISTRIBUTION WIDTH 12.8 % (11.5-14.0); SEGMENTED NEUTROPHILS % (AUTO) 76.3 % (42-78); TOTAL CELLS COUNTED % (AUTO) 100 %; WHITE BLOOD COUNT 5.4 10^3/uL (4.0-10.5)
[2020-04-18 07:06] LABS: ALBUMIN 3.5 g/dL (3.5-5.0); ALKALINE PHOSPHATASE 60 U/L (38-126); ANION GAP 7 (5-19); ASPARTATE AMINO TRANSFERASE 38 U/L (14-36); BILIRUBIN,TOTAL 0.4 mg/dL (0.2-1.3); BLOOD UREA NITROGEN 19 mg/dL (7-20); CALCIUM 8.4 mg/dL (8.4-10.2); CARBON DIOXIDE 29 mmol/L (22-30); CHLORIDE 98 mmol/L (98-107); GLUCOSE 86 mg/dL (75-110); POTASSIUM 3.5 mmol/L (3.6-5.0); TOTAL PROTEIN 6.9 g/dL (6.3-8.2)
[2020-04-18 07:28] LABS: ERYTHROCYTE SEDIMENTATION RATE 81 mm/hr (0-30)
[2020-04-18] MEDS ORDERED: OLOPATADINE HCL OU SCH (10:00)
[2020-04-18] MEDS ORDERED: AZITHROMYCIN 500 MG in DEXTROSE 5%-WATER 250 ML IV SCH (10:00)
[2020-04-18] MEDS ORDERED: CEFTRIAXONE 1 GM/D5W RTU 1 GM/50 ML RTUPB IV SCH (10:00)
[2020-04-18] MEDS: BRIMONIDINE TARTRATE 0.2% OPH SOLN 5 ML OU SCH ×2 (10:21→17:21)
[2020-04-18] MEDS: ENOXAPARIN SODIUM INJ 40 MG/0.4 ML DISP.SYRIN SUBCUT SCH (10:22)
[2020-04-18] MEDS: PANTOPRAZOLE SODIUM 40 MG TABLET.DR PO SCH (10:23)
[2020-04-18] MEDS: ASCORBIC ACID 500 MG TABLET PO SCH (10:23)
[2020-04-18] MEDS: TIMOLOL MALEATE 0.5% OPH SOLN 5 ML OU SCH ×2 (10:23→17:21)
[2020-04-18] MEDS: ZINC SULFATE 220 MG CAPSULE PO SCH (10:24)
[2020-04-18] MEDS: CEFEPIME 1 GM/D5W RTU 1 GM/50 ML RTUPB IV SCH ×2 (12:04→21:26)
[2020-04-18] MEDS: LEVOFLOXACIN 750 MG/D5W RTU 750 MG/150 ML RTUPB IV SCH (12:16)
[2020-04-18] MEDS: DEXAMETHASONE 4 MG TABLET PO SCH (15:21)
--- NOTE | 2020-04-18 17:18 | RADIOLOGY REPORT (SQ) ---
EXAM DESCRIPTION: CHEST SINGLE VIEW IMAGES COMPLETED DATE/TIME: 04/18/2020 5:09 pm REASON FOR STUDY: Sepsis Criteria COMPARISON: 04/17/2020 EXAM PARAMETERS: NUMBER OF VIEWS: One view. TECHNIQUE: Single frontal radiographic view of the chest acquired. RADIATION DOSE: NA LIMITATIONS: None. FINDINGS: LUNGS AND PLEURA: Low lung volumes limits the examination. Patchy multifocal areas of ai rspace disease and interstitial mild prominence in the lungs. Elevation of the right hemidiaphragm u nchanged finding. No pneumothorax. MEDIASTINUM AND HILAR STRUCTURES: No masses. Contour normal. HEART AND VASCULAR STRUCTURES: Heart normal in size. Normal vasculature. BONES: No acute findings. HARDWARE: None in the chest. OTHER: No other significant finding. IMPRESSION: 1. Low lung volumes limits examination P Patchy multifocal areas of airspace disease an d interstitial changes are suggested in the lungs. TECHNICAL DOCUMENTATION: JOB ID: [id number] 2010 [employer]- All Rights Reserved Reading location - IP/workstation name: [email or web address]
[2020-04-18] MEDS ORDERED: BENZOCAINE/MENTHOL SORE THROAT LOZENGE BUCCAL PRN (17:43)
[2020-04-18] MEDS ORDERED: VANCOMYCIN HCL 1,000 MG in DEXTROSE 5%-WATER 250 ML IV ONE (19:00)
--- NOTE | 2020-04-18 19:14 | PDOC H&P ---
History of Present Illness Admission Date/PCP: 04/17/20 19:19 IVAN WHEELER MD Patient complains of: Difficulty with breathing History of Present Illness: KUMAR BENJAMIN is a 74 year old female patient known to my practice whose recently. She presented with 3 to 4 days history of chest congestion with nonproductive cough, fever, and chills. She reported associated generalized weakness, body aches and pain. Patient denied exposure to any COVID- 19 infected person but admitted to attendance at her and meeting with out of town visitors in recent time. She denied any loss of spell, nausea, vomiting, abdominal pain or diarrhea. No dysuria, flank pain or frequency or hematuria. No headache or dizziness. In view of her presentation and risk of exposure along with her chest X ray findings, she had rapid COVID-19 test which was reported as POSITIVE. She was advised admission as a case of COVID pneumonia/pneumonitis. Her morbidities are listed below. Past Medical History Cardiac Medical History: Reports: Hypertension Denies: Coronary Artery Disease, Myocardial Infarction Pulmonary Medical History: Reports: Bronchitis Denies: Asthma, Chronic Obstructive Pulmonary Disease (COPD), Pneumonia EENT Medical History: Reports: Other - Glaucoma Neurological Medical History: Denies: Seizures Endocrine Medical History: Reports: Diabetes Mellitus Type 2 GI Medical History: Reports: Gastroesophageal Reflux Disease Denies: Hepatitis, Hiatal Hernia Musculoskeltal Medical History: Reports: Arthritis - LOWER BACK, PELVIS, SHOULDERS, ALL JOINTS Psychiatric Medical History: Denies: Depression Hematology: Denies: Anemia, Sickle Cell Disease Past Surgical History Past Surgical History: Reports: Hysterectomy Denies: Amputation, Mastectomy, Pacemaker Social History Smoking Status: Never Smoker Hx Prescription Drug Abuse: No - Advance Directive Resuscitation Status: Full Code Family History Family History: Reviewed & Not Pertinent Parental Family History Reviewed: Yes Children Family History Reviewed: Yes Sibling(s) Family History Reviewed.: Yes Medication/Allergy Home Medications: Travoprost (Benzalkonium) [Travatan 0.004% Eye Drop] 1 drop OU QHS 06/01/13 Brimonidine Tartrate/Timolol [Combigan Eye Drops] 1 drop OU BID 08/19/13 Sitagliptin Phosphate [Januvia] 100 mg PO DAILY 08/19/13 Aspirin [Adult Low Dose Aspirin EC] 81 mg PO DAILY 07/11/16 Insulin Degludec [Tresiba Flextouch U-200] 75 unit SQ QHS 07/11/16 Omeprazole 20 mg PO QAM 07/11/16 Irbesartan 300 mg PO DAILY 04/17/20 Montelukast Sodium 10 mg PO QHS 04/17/20 Olopatadine HCl 1 drop OU DAILY 04/17/20 Rosuvastatin Calcium 10 mg PO QHS 04/17/20 Allergies/Adverse Reactions: codeine [Codeine] Adverse Reaction (Severe, Verified 12/05/19 13:49) Vomiting aspirin [Aspirin] Adverse Reaction (Intermediate, Verified 12/05/19 13:49) Vomiting hydrocodone [Hydrocodone] Adverse Reaction (Intermediate, Verified 12/05/19 13:49) nausea vomitting lisinopril [Lisinopril] Adverse Reaction (Intermediate, Verified 12/05/19 13:49) sneezing coughing rosuvastatin calcium [From Crestor] Adverse Reaction (Intermediate, Verified 12/05/19 13:49) muscle weakness Sulfa (Sulfonamide Antibiotics) Adverse Reaction (Intermediate, Verified 12/05/19 13:49) Vomiting Review of Systems Constitutional: PRESENT: chills, fever(s). ABSENT: headache(s), weight gain, weight loss Eyes: ABSENT: visual disturbances Ears: ABSENT: hearing changes Cardiovascular: ABSENT: chest pain, dyspnea on exertion, edema, orthropnea, palpitations Respiratory: PRESENT: cough. ABSENT: hemoptysis Gastrointestinal: ABSENT: abdominal pain, constipation, diarrhea, hematemesis, hematochezia, nausea, vomiting Genitourinary: ABSENT: dysuria, hematuria Musculoskeletal: PRESENT: muscle weakness - generalized. ABSENT: joint swelling Integumentary: ABSENT: rash, wounds Neurological: ABSENT: abnormal gait, abnormal speech, confusion, dizziness, fo shine weakness, syncope Psychiatric: ABSENT: anxiety, depression, homidical ideation, suicidal ideation Endocrine: ABSENT: cold intolerance, heat intolerance, polydipsia, polyuria Hematologic/Lymphatic: ABSENT: easy bleeding, easy bruising, lymphadenopathy Allergic/Immunologic: ABSENT: seasonal rhinorrhea Physical Exam Vital Signs: Temp Pulse Resp BP Pulse Ox 101.3 F H 74 28 H 149/56 H 93 04/18/20 03:18 04/18/20 07:00 04/18/20 03:18 04/18/20 03:18 04/18/20 03:18 Intake & Output 04/17/20 04/18/20 04/19/20 06:59 06:59 06:59 Intake Total 260 Balance 260 Weight 83.6 kg General appearance: PRESENT: no acute distress, obese Head exam: PRESENT: atraumatic, normocephalic Eye exam: PRESENT: conjunctiva pink, EOMI, PERRLA. ABSENT: scleral icterus Ear exam: PRESENT: normal external ear exam Mouth exam: PRESENT: moist, tongue midline Neck exam: PRESENT: full ROM. ABSENT: carotid bruit, JVD, lymphadenopathy, thyromegaly Respiratory exam: PRESENT: decreased breath sounds - at lung bases Cardiovascular exam: PRESENT: RRR. ABSENT: diastolic murmur, rubs, systolic murmur Pulses: PRESENT: normal dorsalis pedis pul, +2 pedal pulses bilateral Vascular exam: PRESENT: normal capillary refill. ABSENT: pallor GI/Abdominal exam: PRESENT: normal bowel sounds, soft. ABSENT: distended, guarding, mass, organolmegaly, rebound, tenderness Rectal exam: PRESENT: deferred Extremities exam: ABSENT: pedal edema Neurological exam: PRESENT: alert, awake, oriented to person, oriented to place, oriented to time, oriented to situation, CN II-XII grossly intact. ABSENT: motor sensory deficit Psychiatric exam: PRESENT: appropriate affect, normal mood. ABSENT: homicidal ideation, suicidal ideation Skin exam: PRESENT: dry, intact, warm. ABSENT: cyanosis, rash Results Laboratory Results: 04/18/20 06:23 04/18/20 06:23 04/17/20 04/17/20 04/17/20 15:26 15:26 18:50 WBC 6.1 RBC 4.54 Hgb 13.0 Hct 38.0 MCV 84 MCH 28.7 MCHC 34.3 RDW 13.2 Plt Count 179 Seg Neutrophils % 64.9 Sodium 135.7 L Potassium 3.8 Chloride 95 L Carbon Dioxide 32 H Anion Gap 9 BUN 19 Creatinine 0.90 Est GFR ( Amer) > 60 Glucose 85 Lactic Acid 0.7 Calcium 8.9 Total Bilirubin 0.5 AST 39 H Alkaline Phosphatase 70 C-Reactive Protein Total Protein 7.8 Albumin 4.0 04/18/20 04/18/20 06:23 06:23 WBC 5.4 RBC 4.25 Hgb 12.2 Hct 36.0 MCV 85 MCH 28.8 MCHC 34.0 RDW 12.8 Plt Count 156 Seg Neutrophils % 76.3 Sodium 134.0 L Potassium 3.5 L Chloride 98 Carbon Dioxide 29 Anion Gap 7 BUN 19 Creatinine 0.78 Est GFR ( Amer) > 60 Glucose 86 Lactic Acid Calcium 8.4 Total Bilirubin 0.4 AST 38 H Alkaline Phosphatase 60 C-Reactive Protein 52.0 H Total Protein 6.9 Albumin 3.5 04/17/20 04/17/20 15:26 18:50 CK-MB (CK-2) 1.32 Troponin I 0.202 0.155 Impressions: Chest X-Ray 04/17/20 15:29 IMPRESSION: Mild asymmetric airspace disease in the periphery of the left upper lobe. Low lung volumes. Assessment & Plan - Diagnosis (1) Pneumonia due to COVID-19 virus Is this a current diagnosis for this admission?: Yes Plan: See admitting attending physician orders for details about care plan. (2) Diabetes mellitus type 2 in obese Is this a current diagnosis for this admission?: Yes Plan: See admitting attending physician orders for details about care plan. (3) HTN (hypertension) Qualifiers: Hypertension type: essential hypertension Qualified Code(s): I10 - Essential (primary) hypertension Is this a current diagnosis for this admission?: Yes Plan: See admitting attending physician orders for details about care plan. (4) HLD (hyperlipidemia) Qualifiers: Hyperlipidemia type: unspecified Qualified Code(s): E78.5 - Hyperlipidemia, unspecified Is this a current diagnosis for this admission?: Yes Plan: See admitting attending physician orders for details about care plan. (6) Hx of glaucoma Is this a current diagnosis for this admission?: Yes Plan: See admitting attending physician orders for details about care plan. - Time Time Spent: 50 to 70 Minutes Medications reviewed and adjusted accordingly: Yes Anticipated discharge: Home with Homehealth Within: Other - Inpatient Certification Based on my medical assessment, after consideration of the patient's comorbidities, presenting symptoms, or acuity I expect that the services needed warrant INPATIENT care.: Yes I certify that my determination is in accordance with my understanding of Medicare's requirements for reasonable and necessary INPATIENT services [42 CFR 412.3e].: Yes Medical Necessity: Significant Comorbidiites Make Outpatient Treatment Too Risky, Need Close Monitoring Due to Risk of Patient Decompensation, Need For IV Fluids, Need For Continuous Telemetry Monitoring, Need for IV Antibiotics, Risk of Complication if Not Cared For in Hospital, Risk of Diagnosis Which Will R equire Inpatient Eval/Care/Monitoring Post Hospital Care: D/C Acute Care Assistant Documentation - Plan Summary Plan Summary: See admitting attending physician orders for details about care plan.
[2020-04-18] MEDS: POTASSIUM CHLORIDE 10 MEQ TABLET.ER PO SCH (21:26)
[2020-04-18] MEDS: MONTELUKAST SODIUM 10 MG TABLET PO SCH (21:28)
[2020-04-18] MEDS ORDERED: (PENDING PHARMACY ID) (Travoprost (Benzalkonium) [Travatan 0.004% Eye Drop] 1 DROP) OU SCH (22:00)
[2020-04-18] MEDS: VANCOMYCIN HCL 1,500 MG in DEXTROSE 5%-WATER 250 ML IV SCH (23:15)
[2020-04-19] MEDS: DEXAMETHASONE 4 MG TABLET PO SCH ×4 (00:15→22:15)
[2020-04-19] MEDS: LATANOPROST 0.005% OPH SOLN 2.5 ML OU SCH ×2 (00:16→22:17)
[2020-04-19] MEDS: POTASSIUM CHLORIDE 10 MEQ TABLET.ER PO SCH (04:31)
[2020-04-19] MEDS ORDERED: POTASSIUM CHLORIDE 10 MEQ TABLET.ER PO SCH (06:00)
[2020-04-19 06:37] LABS: ABSOLUTE LYMPHOCYTES (AUTO) 0.6 10^3/uL (0.5-4.7); ABSOLUTE MONOCYTES (AUTO) 0.3 10^3/uL (0.1-1.4); MEAN CORPUSCULAR HEMOGLOBIN 28.9 pg (27.0-33.4); TOTAL CELLS COUNTED % (AUTO) 100 %
[2020-04-19 06:41] LABS: INTERNATIONAL RATION (INR) 1.16; PROTHROMBIN TIME 14.8 SEC (11.4-15.4)
[2020-04-19 06:42] LABS: PARTIAL THROMBOPLASTIN TIME 29.1 SEC (23.5-35.8)
[2020-04-19 06:47] LABS: ABSOLUTE NEUT (AUTO) 3.5 10^3/uL (1.7-8.2); BASOPHILS % (AUTO) 0.4 % (0-2); EOSINOPHILS % (AUTO) 0.1 % (0-6); HEMATOCRIT 39.2 % (36.0-47.0); HEMOGLOBIN 13.4 g/dL (12.0-15.5); LYMPHOCYTES % (AUTO) 13.1 % (13-45); MEAN CORPUSCULAR HGB CONC 34.1 g/dL (32.0-36.0); MEAN CORPUSCULAR VOLUME 85 fl (80-97); MONOCYTES % (AUTO) 6.9 % (3-13); PLATELET COUNT 160 10^3/uL (150-450); RED BLOOD COUNT 4.62 10^6/uL (3.72-5.28); SEGMENTED NEUTROPHILS % (AUTO) 79.5 % (42-78); WHITE BLOOD COUNT 4.4 10^3/uL (4.0-10.5)
[2020-04-19 06:51] LABS: ALBUMIN 3.8 g/dL (3.5-5.0); ALKALINE PHOSPHATASE 63 U/L (38-126); ANION GAP 7 (5-19); ASPARTATE AMINO TRANSFERASE 44 U/L (14-36); BILIRUBIN,TOTAL 0.5 mg/dL (0.2-1.3); BLOOD UREA NITROGEN 21 mg/dL (7-20); CALCIUM 8.9 mg/dL (8.4-10.2); CARBON DIOXIDE 29 mmol/L (22-30); CHLORIDE 99 mmol/L (98-107); GLUCOSE 276 mg/dL (75-110); TOTAL PROTEIN 7.7 g/dL (6.3-8.2)
[2020-04-19 06:57] LABS: POTASSIUM 4.8 mmol/L (3.6-5.0)
[2020-04-19 07:32] LABS: ERYTHROCYTE SEDIMENTATION RATE 77 mm/hr (0-30)
[2020-04-19] MEDS ORDERED: VANCOMYCIN HCL 0 MG in DEXTROSE 5%-WATER 250 ML IV NR (08:00)
[2020-04-19] MEDS: CEFEPIME 1 GM/D5W RTU 1 GM/50 ML RTUPB IV SCH ×2 (10:16→22:21)
[2020-04-19] MEDS: ASCORBIC ACID 500 MG TABLET PO SCH (10:31)
[2020-04-19] MEDS: PANTOPRAZOLE SODIUM 40 MG TABLET.DR PO SCH (10:32)
[2020-04-19] MEDS: TIMOLOL MALEATE 0.5% OPH SOLN 5 ML OU SCH ×2 (10:32→18:43)
[2020-04-19] MEDS: ZINC SULFATE 220 MG CAPSULE PO SCH (10:32)
[2020-04-19] MEDS: BRIMONIDINE TARTRATE 0.2% OPH SOLN 5 ML OU SCH ×2 (10:33→18:43)
[2020-04-19] MEDS: LOSARTAN POTASSIUM 50 MG TABLET PO SCH (10:33)
[2020-04-19] MEDS: ENOXAPARIN SODIUM INJ 40 MG/0.4 ML DISP.SYRIN SUBCUT SCH (10:33)
[2020-04-19] MEDS: LEVOFLOXACIN 750 MG/D5W RTU 750 MG/150 ML RTUPB IV SCH (13:52)
[2020-04-19] MEDS ORDERED: DEXTROSE 40% GEL 15 GM TUBE PO PRN ×2 (19:08)
[2020-04-19] MEDS ORDERED: DEXTROSE 50%-WATER 25 GM/50 ML DISP.SYRIN IV PRN ×2 (19:08)
[2020-04-19] MEDS ORDERED: GLUCAGON,HUMAN RECOMB 1 MG INJ IM PRN (19:08)
--- NOTE | 2020-04-19 19:29 | PDOC PROGRESS REPORT ---
Subjective Progress Note for:: 04/19/20 Subjective:: Patient denied any chest pain. Breathing is okay on supplemental oxygen via nasal cannula. No fever or chills. No nausea, vomiting or abdominal pain. PO intake is fair. Reason For Visit: COVID PNEUMONIA Physical Exam Vital Signs: Temp Pulse Resp BP Pulse Ox 97.3 F 60 16 138/76 H 100 04/19/20 03:39 04/19/20 14:00 04/19/20 04:21 04/19/20 03:39 04/19/20 03:39 Intake & Output 04/18/20 04/19/20 04/20/20 06:59 06:59 06:59 Intake Total 260 1682 50 Balance 260 1682 50 Weight 83.6 kg 84.1 kg General appearance: PRESENT: no acute distress, obese Head exam: PRESENT: atraumatic, normocephalic Eye exam: PRESENT: conjunctiva pink. ABSENT: scleral icterus Mouth exam: PRESENT: moist Respiratory exam: PRESENT: clear to auscultation marielos Cardiovascular exam: PRESENT: RRR, +S1, +S2. ABSENT: diastolic murmur, rubs, systolic murmur Vascular exam: ABSENT: pallor GI/Abdominal exam: PRESENT: normal bowel sounds, soft. ABSENT: tenderness Extremities exam: ABSENT: pedal edema Musculoskeletal exam: PRESENT: ambulatory - within her room and participate in self care. Neurological exam: PRESENT: alert, awake, oriented to person, oriented to place, oriented to time, oriented to situation Psychiatric exam: PRESENT: appropriate affect, normal mood. ABSENT: homicidal ideation, suicidal ideation Skin exam: PRESENT: dry, warm Results Laboratory Results: 04/19/20 06:03 04/19/20 06:03 04/19/20 04/19/20 06:03 06:03 WBC 4.4 RBC 4.62 Hgb 13.4 Hct 39.2 MCV 85 MCH 28.9 MCHC 34.1 RDW 13.0 Plt Count 160 Seg Neutrophils % 79.5 H Sodium 135.4 L Potassium 4.8 D Chloride 99 Carbon Dioxide 29 Anion Gap 7 BUN 21 H Creatinine 0.73 Est GFR ( Amer) > 60 Glucose 276 H Calcium 8.9 Total Bilirubin 0.5 AST 44 H Alkaline Phosphatase 63 Total Protein 7.7 Albumin 3.8 04/17/20 04/17/20 15:26 18:50 CK-MB (CK-2) 1.32 Troponin I 0.202 0.155 Impressions: Chest X-Ray 04/18/20 00:00 IMPRESSION: 1. Low lung volumes limits examination P Patchy multifocal areas of airspace disease and interstitial changes are suggested in the lungs. Assessment & Plan - Diagnosis (1) Pneumonia due to COVID-19 virus Is this a current diagnosis for this admission?: Yes (2) Diabetes mellitus type 2 in obese Is this a current diagnosis for this admission?: Yes (3) HTN (hypertension) Qualifiers: Hypertension type: essential hypertension Qualified Code(s): I10 - Essential (primary) hypertension Is this a current diagnosis for this admission?: Yes (4) HLD (hyperlipidemia) Qualifiers: Hyperlipidemia type: unspecified Qualified Code(s): E78.5 - Hyperlipidemia, unspecified Is this a current diagnosis for this admission?: Yes (6) Hx of glaucoma Is this a current diagnosis for this admission?: Yes - Time Time Spent with patient: 25-34 minutes Level of Care: IMCU Medications reviewed and adjusted accordingly: Yes Anticipated discharge: Home with Homehealth Within: Other - Inpatient Certification Based on my medical assessment, after consideration of the patient's comorbidities, presenting symptoms, or acuity I expect that the services needed warrant INPATIENT care.: Yes I certify that my determination is in accordance with my understanding of Medicare's requirements for reasonable and necessary INPATIENT services [42 CFR 412.3e].: Yes Medical Necessity: Significant Comorbidiites Make Outpatient Treatment Too Risky , Need Close Monitoring Due to Risk of Patient Decompensation, Need For IV Fluids, Need For Continuous Telemetry Monitoring, Need for IV Antibiotics, Risk of Complication if Not Cared For in Hospital, Risk of Diagnosis Which Will Require Inpatient Eval/Care/Monitoring Post Hospital Care: D/C Data Input Clerk Documentation - Plan Summary Plan Summary: Continue triple antibiotic coverage. Change her anticoagulation therapy to Heparin 10,000 units q8 hours in vie of her elevated D-Dimer level. Maintain on all other current medication management. Continue to monitor her proinflammatory and coagulopathy indices.
[2020-04-19] MEDS ORDERED: HEPARIN SOD (PORCINE) 5,000 UNIT/ML 1 ML VIAL SUBCUT SCH (22:00)
[2020-04-19] MEDS ORDERED: (PENDING PHARMACY ID) (Rosuvastatin Calcium [Rosuvastatin Calcium] 10 MG) PO SCH (22:00)
[2020-04-19] MEDS: ATORVASTATIN CALCIUM 20 MG TABLET PO SCH (22:15)
[2020-04-19] MEDS: MONTELUKAST SODIUM 10 MG TABLET PO SCH (22:18)
[2020-04-19] MEDS: INSULIN LISPRO 100 UNIT/ML 3 ML VIAL SUBCUT SCH (22:18)
[2020-04-19] MEDS: HEPARIN SOD (PORCINE) 5,000 UNIT/ML 1 ML VIAL SUBCUT SCH (22:19)
[2020-04-19] MEDS: INSULIN GLARGINE,HUM.REC.ANLOG 1,000 UNIT/10 ML VIAL SUBCUT SCH (22:19)
[2020-04-19] MEDS: ACETAMINOPHEN 325 MG TABLET PO PRN (22:28)
[2020-04-19] MEDS: VANCOMYCIN HCL 1,500 MG in DEXTROSE 5%-WATER 250 ML IV SCH (23:04)
[2020-04-20] MEDS: HEPARIN SOD (PORCINE) 5,000 UNIT/ML 1 ML VIAL SUBCUT SCH ×3 (06:26→21:21)
[2020-04-20] MEDS: DEXAMETHASONE 4 MG TABLET PO SCH ×3 (06:27→21:23)
[2020-04-20 07:06] LABS: ABSOLUTE LYMPHOCYTES (AUTO) 0.6 10^3/uL (0.5-4.7); ABSOLUTE MONOCYTES (AUTO) 0.7 10^3/uL (0.1-1.4); ABSOLUTE NEUT (AUTO) 6.9 10^3/uL (1.7-8.2); BASOPHILS % (AUTO) 0.2 % (0-2); HEMATOCRIT 37.3 % (36.0-47.0); HEMOGLOBIN 12.8 g/dL (12.0-15.5); LYMPHOCYTES % (AUTO) 7.7 % (13-45); MEAN CORPUSCULAR HEMOGLOBIN 28.6 pg (27.0-33.4); MEAN CORPUSCULAR HGB CONC 34.4 g/dL (32.0-36.0); MEAN CORPUSCULAR VOLUME 83 fl (80-97); MONOCYTES % (AUTO) 8.5 % (3-13); PLATELET COUNT 213 10^3/uL (150-450); RED BLOOD COUNT 4.48 10^6/uL (3.72-5.28); RED CELL DISTRIBUTION WIDTH 12.9 % (11.5-14.0); SEGMENTED NEUTROPHILS % (AUTO) 83.6 % (42-78); TOTAL CELLS COUNTED % (AUTO) 100 %; WHITE BLOOD COUNT 8.3 10^3/uL (4.0-10.5)
[2020-04-20 07:09] LABS: INTERNATIONAL RATION (INR) 1.08; PARTIAL THROMBOPLASTIN TIME 27.8 SEC (23.5-35.8); PROTHROMBIN TIME 14.1 SEC (11.4-15.4)
[2020-04-20 07:29] LABS: ALBUMIN 3.6 g/dL (3.5-5.0); ALKALINE PHOSPHATASE 67 U/L (38-126); ANION GAP 7 (5-19); ASPARTATE AMINO TRANSFERASE 30 U/L (14-36); BILIRUBIN,TOTAL 0.4 mg/dL (0.2-1.3); BLOOD UREA NITROGEN 23 mg/dL (7-20); C-REACTIVE PROTEIN 21.9 mg/L (<10.0); CALCIUM 8.8 mg/dL (8.4-10.2); CARBON DIOXIDE 27 mmol/L (22-30); CHLORIDE 100 mmol/L (98-107); GLUCOSE 282 mg/dL (75-110); POTASSIUM 5.2 mmol/L (3.6-5.0)
[2020-04-20] MEDS: LOSARTAN POTASSIUM 50 MG TABLET PO SCH (10:01)
[2020-04-20] MEDS: ZINC SULFATE 220 MG CAPSULE PO SCH (10:03)
[2020-04-20] MEDS: ASCORBIC ACID 500 MG TABLET PO SCH (10:03)
[2020-04-20] MEDS: PANTOPRAZOLE SODIUM 40 MG TABLET.DR PO SCH (10:03)
[2020-04-20] MEDS: INSULIN LISPRO 100 UNIT/ML 3 ML VIAL SUBCUT SCH ×3 (10:05→17:50)
[2020-04-20] MEDS: BRIMONIDINE TARTRATE 0.2% OPH SOLN 5 ML OU SCH ×2 (10:06→18:07)
[2020-04-20] MEDS: CEFEPIME 1 GM/D5W RTU 1 GM/50 ML RTUPB IV SCH ×2 (10:06→21:25)
[2020-04-20] MEDS: TIMOLOL MALEATE 0.5% OPH SOLN 5 ML OU SCH ×2 (10:26→18:07)
[2020-04-20] MEDS: LEVOFLOXACIN 750 MG/D5W RTU 750 MG/150 ML RTUPB IV SCH (12:40)
--- NOTE | 2020-04-20 17:07 | PDOC PROGRESS REPORT ---
Subjective Progress Note for:: 04/20/20 Subjective:: No chest pain. or difficulty with breathing. No fever or chills. No nausea, vomiting or abdominal pain. P.O intake is fair. Reason For Visit: COVID PNEUMONIA Physical Exam Vital Signs: Temp Pulse Resp BP Pulse Ox 98.1 F 64 18 124/62 98 04/20/20 11:00 04/20/20 14:00 04/20/20 11:00 04/20/20 11:00 04/20/20 11:00 Intake & Output 04/19/20 04/20/20 04/21/20 06:59 06:59 06:59 Intake Total 1682 1410 Output Total 600 Balance 1682 810 Weight 84.1 kg 83.2 kg Physical Exam: General appearance: PRESENT: no acute distress, obese Head exam: PRESENT: atraumatic, normocephalic Eye exam: PRESENT: conjunctiva pink. ABSENT: pallor, scleral icterus Mouth exam: PRESENT: moist Respiratory exam: PRESENT: clear to auscultation marielos Cardiovascular exam: PRESENT: RRR, +S1, +S2. ABSENT: diastolic murmur, rubs, systolic murmur GI/Abdominal exam: PRESENT: normal bowel sounds, soft. ABSENT: tenderness Extremities exam: ABSENT: pedal edema Musculoskeletal exam: PRESENT: ambulatory - within her room and participate in self care. Neurological exam: PRESENT: alert, awake, oriented to person, oriented to place, oriented to time, oriented to situation Psychiatric exam: PRESENT: appropriate affect, normal mood. ABSENT: homicidal ideation, suicidal ideation Skin exam: PRESENT: dry, warm Results Laboratory Results: 04/20/20 06:07 04/20/20 06:07 04/20/20 04/20/20 06:07 06:07 WBC 8.3 RBC 4.48 Hgb 12.8 Hct 37.3 MCV 83 MCH 28.6 MCHC 34.4 RDW 12.9 Plt Count 213 Seg Neutrophils % 83.6 H Sodium 134.1 L Potassium 5.2 H Chloride 100 Carbon Dioxide 27 Anion Gap 7 BUN 23 H Creatinine 0.74 Est GFR ( Amer) > 60 Glucose 282 H Calcium 8.8 Total Bilirubin 0.4 AST 30 Alkaline Phosphatase 67 C-Reactive Protein 21.9 H Total Protein 7.0 Albumin 3.6 04/17/20 04/17/20 15:26 18:50 CK-MB (CK-2) 1.32 Troponin I 0.202 0.155 Impressions: Chest X-Ray 04/18/20 00:00 IMPRESSION: 1. Low lung volumes limits examination P Patchy multifocal areas of airspace disease and interstitial changes are suggested in the lungs. Assessment & Plan - Diagnosis (1) Pneumonia due to COVID-19 virus Is this a current diagnosis for this admission?: Yes (2) Diabetes mellitus type 2 in obese Is this a current diagnosis for this admission?: Yes (3) HTN (hypertension) Qualifiers: Hypertension type: essential hypertension Qualified Code(s): I10 - Essential (primary) hypertension Is this a current diagnosis for this admission?: Yes (4) HLD (hyperlipidemia) Qualifiers: Hyperlipidemia type: unspecified Qualified Code(s): E78.5 - Hyperlipidemia, unspecified Is this a current diagnosis for this admission?: Yes (6) Hx of glaucoma Is this a current diagnosis for this admission?: Yes - Time Time Spent with patient: 25-34 minutes Level of Care: IMCU Medications reviewed and adjusted accordingly: Yes Anticipated discharge: Home with Homehealth Within: Other - Inpatient Certification Based on my medical assessment, after consideration of the patient's comorbidities, presenting symptoms, or acuity I expect that the services needed warrant INPATIENT care.: Yes I certify that my determination is in accordance with my understanding of Medicare's requirements for reasonable and necessary INPATIENT services [42 CFR 412.3e].: Yes Medical Necessity: Significant Comorbidiites Make Outpatient Treatment Too Risky, Need Close Monitoring Due to Risk of Patient Decompensation, Need For Continuous Telemetry Monitoring, Need for IV Antibiotics, Risk of Complication if Not Cared For in Hospital, Risk of Diagnosis Which Will Require Inpatient Eval/Care/Monitoring Post Hospital 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 Her indices are improving.
[2020-04-20] MEDS: ACETAMINOPHEN 325 MG TABLET PO PRN (21:03)
[2020-04-20] MEDS: MONTELUKAST SODIUM 10 MG TABLET PO SCH (21:23)
[2020-04-20] MEDS: ATORVASTATIN CALCIUM 20 MG TABLET PO SCH (21:23)
[2020-04-20] MEDS: LATANOPROST 0.005% OPH SOLN 2.5 ML OU SCH (21:28)
[2020-04-20] MEDS: VANCOMYCIN HCL 1,500 MG in DEXTROSE 5%-WATER 250 ML IV SCH (22:44)
[2020-04-21] MEDS: INSULIN LISPRO 100 UNIT/ML 3 ML VIAL SUBCUT SCH ×5 (00:10→22:00)
[2020-04-21] MEDS: INSULIN GLARGINE,HUM.REC.ANLOG 1,000 UNIT/10 ML VIAL SUBCUT SCH ×2 (00:11→22:00)
[2020-04-21] MEDS: DEXAMETHASONE 4 MG TABLET PO SCH ×3 (05:53→21:27)
[2020-04-21] MEDS: HEPARIN SOD (PORCINE) 5,000 UNIT/ML 1 ML VIAL SUBCUT SCH ×3 (05:53→21:27)
[2020-04-21] MEDS: PANTOPRAZOLE SODIUM 40 MG TABLET.DR PO SCH (11:48)
[2020-04-21] MEDS: LOSARTAN POTASSIUM 50 MG TABLET PO SCH (11:48)
[2020-04-21] MEDS: ASCORBIC ACID 500 MG TABLET PO SCH (11:48)
[2020-04-21] MEDS: CEFEPIME 1 GM/D5W RTU 1 GM/50 ML RTUPB IV SCH ×2 (11:50→22:00)
[2020-04-21] MEDS: ZINC SULFATE 220 MG CAPSULE PO SCH (11:50)
[2020-04-21] MEDS: LEVOFLOXACIN 750 MG/D5W RTU 750 MG/150 ML RTUPB IV SCH (11:51)
[2020-04-21] MEDS: BRIMONIDINE TARTRATE 0.2% OPH SOLN 5 ML OU SCH ×2 (12:29→17:00)
[2020-04-21] MEDS: TIMOLOL MALEATE 0.5% OPH SOLN 5 ML OU SCH ×2 (12:29→17:00)
--- NOTE | 2020-04-21 16:13 | PDOC PROGRESS REPORT ---
Subjective Progress Note for:: 04/21/20 Subjective:: She has covid pneumonia ,she is not requiring more oxygen,she seems to have stabilized No physical examination was done because of the extreme contagion of COVID-19 and also to save PPE Reason For Visit: COVID PNEUMONIA Physical Exam Vital Signs: Temp Pulse Resp BP Pulse Ox 98.2 F 67 16 159/72 H 100 04/21/20 11:36 04/21/20 14:00 04/21/20 11:36 04/21/20 11:36 04/21/20 11:36 Intake & Output 04/20/20 04/21/20 04/22/20 06:59 06:59 06:59 Intake Total 1660 500 200 Output Total 600 Balance 1060 500 200 Weight 83.2 kg 83 kg General appearance: PRESENT: no acute distress Results Laboratory Results: 04/20/20 06:07 04/20/20 06:07 04/17/20 04/17/20 15:26 18:50 CK-MB (CK-2) 1.32 Troponin I 0.202 0.155 Impressions: Chest X-Ray 04/18/20 00:00 IMPRESSION: 1. Low lung volumes limits examination P Patchy multifocal areas of airspace disease and interstitial changes are suggested in the lungs. Assessment & Plan - Diagnosis (1) 2019 novel coronavirus–infected pneumonia (NCIP)#8211;infected pneumonia (NCIP) Is this a current diagnosis for this admission?: Yes Plan: Continue present treatment strategy including dexamethason ,Remdesvir and low- dose dexamethasone is the only recommended evidence-based treatment strategy for COVID-19,Remdesvir is not available in the hospital (2) Type 2 diabetes mellitus with other specified complication Qualifiers: Diabetes mellitus termite treater insulin use: with usp use Qualified Code(s): E11.69 - Type 2 diabetes mellitus with other specified complication; Z79.4 - skilled nursing (current) use of insulin Is this a current diagnosis for this admission?: Yes Plan: Continue present treatment (3) Pneumonia, unspecified organism Is this a current diagnosis for this admission?: Yes (4) Other viral pneumonia Is this a current diagnosis for this admission?: Yes - Time Time Spent with patient: 25-34 minutes Level of Care: IMCU
[2020-04-21 18:36] LABS: VANCOMYCIN,TROUGH 8.8 ug/mL (5.0-20.0)
[2020-04-21] MEDS: ATORVASTATIN CALCIUM 20 MG TABLET PO SCH (21:28)
[2020-04-21] MEDS: MONTELUKAST SODIUM 10 MG TABLET PO SCH (21:29)
[2020-04-21] MEDS: LATANOPROST 0.005% OPH SOLN 2.5 ML OU SCH (21:32)
[2020-04-21] MEDS: VANCOMYCIN HCL 1,500 MG in DEXTROSE 5%-WATER 250 ML IV SCH (23:25)
[2020-04-22] MEDS: HEPARIN SOD (PORCINE) 5,000 UNIT/ML 1 ML VIAL SUBCUT SCH ×3 (06:19→21:36)
[2020-04-22] MEDS: DEXAMETHASONE 4 MG TABLET PO SCH ×3 (06:20→21:36)
[2020-04-22] MEDS: ASCORBIC ACID 500 MG TABLET PO SCH (09:20)
[2020-04-22] MEDS: ZINC SULFATE 220 MG CAPSULE PO SCH (09:20)
[2020-04-22] MEDS: PANTOPRAZOLE SODIUM 40 MG TABLET.DR PO SCH (09:20)
[2020-04-22] MEDS: LOSARTAN POTASSIUM 50 MG TABLET PO SCH (09:20)
[2020-04-22] MEDS: INSULIN LISPRO 100 UNIT/ML 3 ML VIAL SUBCUT SCH ×4 (09:20→21:40)
[2020-04-22] MEDS: CEFEPIME 1 GM/D5W RTU 1 GM/50 ML RTUPB IV SCH ×2 (09:20→21:36)
[2020-04-22] MEDS: BRIMONIDINE TARTRATE 0.2% OPH SOLN 5 ML OU SCH ×2 (09:21→17:57)
[2020-04-22] MEDS: TIMOLOL MALEATE 0.5% OPH SOLN 5 ML OU SCH ×2 (09:21→17:58)
[2020-04-22] MEDS: VANCOMYCIN HCL 1,000 MG in DEXTROSE 5%-WATER 250 ML IV SCH ×2 (11:19→21:37)
[2020-04-22] MEDS: LEVOFLOXACIN 750 MG/D5W RTU 750 MG/150 ML RTUPB IV SCH (15:06)
--- NOTE | 2020-04-22 17:21 | PDOC PROGRESS REPORT ---
Subjective Progress Note for:: 04/22/20 Subjective:: She has covid pneumonia ,she is not requiring more oxygen,she seems to have stabilized No physical examination was done because of the extreme contagion of COVID-19 and also to save PPE Reason For Visit: COVID PNEUMONIA Physical Exam Vital Signs: Temp Pulse Resp BP Pulse Ox 98.9 F 70 17 188/80 H 95 04/22/20 16:00 04/22/20 16:00 04/22/20 16:00 04/22/20 16:00 04/22/20 16:00 Intake & Output 04/21/20 04/22/20 04/23/20 06:59 06:59 06:59 Intake Total 500 1020 710 Balance 500 1020 710 Weight 83 kg 83.6 kg 83.6 kg Results Laboratory Results: 04/20/20 06:07 04/21/20 17:56 04/21/20 17:56 Creatinine 0.75 Est GFR ( Amer) > 60 04/17/20 04/17/20 15:26 18:50 CK-MB (CK-2) 1.32 Troponin I 0.202 0.155 Impressions: Chest X-Ray 04/18/20 00:00 IMPRESSION: 1. Low lung volumes limits examination P Patchy multifocal areas of airspace disease and interstitial changes are suggested in the lungs. 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
[2020-04-22] MEDS: MONTELUKAST SODIUM 10 MG TABLET PO SCH (21:36)
[2020-04-22] MEDS: ATORVASTATIN CALCIUM 20 MG TABLET PO SCH (21:36)
[2020-04-22] MEDS: INSULIN GLARGINE,HUM.REC.ANLOG 1,000 UNIT/10 ML VIAL SUBCUT SCH (21:40)
[2020-04-22] MEDS ORDERED: DOCUSATE SODIUM 100 MG CAPSULE PO PRN (21:41)
[2020-04-22] MEDS: LATANOPROST 0.005% OPH SOLN 2.5 ML OU SCH (21:42)
[2020-04-22] MEDS: ACETAMINOPHEN 325 MG TABLET PO PRN (22:01)
[2020-04-23] MEDS: HEPARIN SOD (PORCINE) 5,000 UNIT/ML 1 ML VIAL SUBCUT SCH ×3 (06:11→21:39)
[2020-04-23] MEDS: DEXAMETHASONE 4 MG TABLET PO SCH ×3 (06:12→21:40)
[2020-04-23] MEDS: INSULIN LISPRO 100 UNIT/ML 3 ML VIAL SUBCUT SCH ×4 (07:34→21:39)
[2020-04-23] MEDS: CEFEPIME 1 GM/D5W RTU 1 GM/50 ML RTUPB IV SCH ×2 (09:00→21:38)
[2020-04-23] MEDS: PANTOPRAZOLE SODIUM 40 MG TABLET.DR PO SCH (09:00)
[2020-04-23] MEDS: ASCORBIC ACID 500 MG TABLET PO SCH (09:00)
[2020-04-23] MEDS: ZINC SULFATE 220 MG CAPSULE PO SCH (09:00)
[2020-04-23] MEDS: LOSARTAN POTASSIUM 50 MG TABLET PO SCH (09:00)
[2020-04-23] MEDS: TIMOLOL MALEATE 0.5% OPH SOLN 5 ML OU SCH ×2 (09:01→17:03)
[2020-04-23] MEDS: BRIMONIDINE TARTRATE 0.2% OPH SOLN 5 ML OU SCH ×2 (09:01→17:02)
[2020-04-23] MEDS: VANCOMYCIN HCL 1,000 MG in DEXTROSE 5%-WATER 250 ML IV SCH ×2 (10:14→22:08)
[2020-04-23] MEDS: LEVOFLOXACIN 750 MG/D5W RTU 750 MG/150 ML RTUPB IV SCH (11:33)
--- NOTE | 2020-04-23 15:17 | PDOC PROGRESS REPORT ---
Subjective Progress Note for:: 04/23/20 Subjective:: I had a video-assisted encounter with the patient today This is a preferred method to save PPE and also reduce the spread of an extremely contagious disease she has Covid pneumonia patient overall says she is feeling better other than a headache that she gets in the evening and she gets short of breath when she exerts her self but she is not requiring much more oxygen Reason For Visit: COVID PNEUMONIA Physical Exam Vital Signs: Temp Pulse Resp BP Pulse Ox 98.3 F 61 18 139/59 H 98 04/23/20 12:00 04/23/20 14:00 04/23/20 12:00 04/23/20 12:00 04/23/20 12:00 Intake & Output 04/22/20 04/23/20 04/24/20 06:59 06:59 06:59 Intake Total 1020 1700 710 Balance 1020 1700 710 Weight 83.6 kg 83.6 kg Results Laboratory Results: 04/20/20 06:07 04/21/20 17:56 04/17/20 22:17 Blood Blood Culture - Final NO GROWTH IN 5 DAYS 04/17/20 18:50 Blood Blood Culture - Final NO GROWTH IN 5 DAYS 04/17/20 04/17/20 15:26 18:50 CK-MB (CK-2) 1.32 Troponin I 0.202 0.155 Impressions: Chest X-Ray 04/18/20 00:00 IMPRESSION: 1. Low lung volumes limits examination P Patchy multifocal areas of airspace disease and interstitial changes are suggested in the lungs. Assessment & Plan - Diagnosis (1) 2019 novel coronavirus–infected pneumonia (NCIP)#8211;infected pneumonia (NCIP) Is this a current diagnosis for this admission?: Yes Plan: Continue present treatment strategy including dexamethason ,Remdesvir and low- dose dexamethasone is the only recommended evidence-based treatment strategy for COVID-19,Remdesvir is not available in the hospital (2) Type 2 diabetes mellitus with other specified complication Qualifiers: Diabetes mellitus shelter insulin use: with manager highway use Qualified Code(s): E11.69 - Type 2 diabetes mellitus with other specified complication; Z79.4 - fish hatchery 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
[2020-04-23] MEDS ORDERED: BUTALB/ACETAMINOPHEN/CAFFEINE 1 TAB EACH PO PRN (15:18)
[2020-04-23] MEDS: ATORVASTATIN CALCIUM 20 MG TABLET PO SCH (21:38)
[2020-04-23] MEDS: MONTELUKAST SODIUM 10 MG TABLET PO SCH (21:38)
[2020-04-23] MEDS: LATANOPROST 0.005% OPH SOLN 2.5 ML OU SCH (21:38)
[2020-04-23] MEDS: INSULIN GLARGINE,HUM.REC.ANLOG 1,000 UNIT/10 ML VIAL SUBCUT SCH (21:39)
[2020-04-23 22:18] LABS: VANCOMYCIN,TROUGH 14.4 ug/mL (5.0-20.0)
[2020-04-24] MEDS: HEPARIN SOD (PORCINE) 5,000 UNIT/ML 1 ML VIAL SUBCUT SCH ×3 (07:08→22:24)
[2020-04-24] MEDS: DEXAMETHASONE 4 MG TABLET PO SCH ×3 (07:08→22:22)
[2020-04-24] MEDS: INSULIN LISPRO 100 UNIT/ML 3 ML VIAL SUBCUT SCH ×4 (08:37→22:19)
[2020-04-24] MEDS: ASCORBIC ACID 500 MG TABLET PO SCH (11:16)
[2020-04-24] MEDS: PANTOPRAZOLE SODIUM 40 MG TABLET.DR PO SCH (11:16)
[2020-04-24] MEDS: ZINC SULFATE 220 MG CAPSULE PO SCH (11:16)
[2020-04-24] MEDS: LOSARTAN POTASSIUM 50 MG TABLET PO SCH (11:16)
[2020-04-24] MEDS: BRIMONIDINE TARTRATE 0.2% OPH SOLN 5 ML OU SCH ×2 (11:17→17:34)
[2020-04-24] MEDS: TIMOLOL MALEATE 0.5% OPH SOLN 5 ML OU SCH ×2 (11:17→17:34)
[2020-04-24] MEDS: CEFEPIME 1 GM/D5W RTU 1 GM/50 ML RTUPB IV SCH ×2 (11:17→22:20)
[2020-04-24] MEDS: VANCOMYCIN HCL 1,000 MG in DEXTROSE 5%-WATER 250 ML IV SCH ×2 (13:05→23:00)
[2020-04-24] MEDS: LEVOFLOXACIN 750 MG/D5W RTU 750 MG/150 ML RTUPB IV SCH (15:01)
--- NOTE | 2020-04-24 17:44 | PDOC PROGRESS REPORT ---
Subjective Progress Note for:: 04/24/20 Subjective:: No chest pain or difficulty with breathing. Her demand for supplemental oxygen has decrease to prn level. No fever or chills. No nausea, vomiting or abdominal pain. P.O intake is fair. Reason For Visit: COVID PNEUMONIA Physical Exam Vital Signs: Temp Pulse Resp BP Pulse Ox 97.9 F 72 22 H 132/89 H 99 04/24/20 11:43 04/24/20 11:43 04/24/20 11:43 04/24/20 11:43 04/24/20 11:43 Intake & Output 04/23/20 04/24/20 04/25/20 06:59 06:59 06:59 Intake Total 1700 1270 450 Balance 1700 1270 450 Weight 83.6 kg 83 kg Physical Exam: General appearance: PRESENT: no acute distress, obese Head exam: PRESENT: atraumatic, normocephalic Eye exam: PRESENT: conjunctiva pink. ABSENT: pallor, scleral icterus Mouth exam: PRESENT: moist Respiratory exam: PRESENT: clear to auscultation marielos Cardiovascular exam: PRESENT: RRR, +S1, +S2. ABSENT: diastolic murmur, rubs, systolic murmur GI/Abdominal exam: PRESENT: normal bowel sounds, soft. ABSENT: tenderness Extremities exam: ABSENT: pedal edema Musculoskeletal exam: PRESENT: ambulatory - within her room and participate in self care. Neurological exam: PRESENT: alert, awake, oriented to person, oriented to place, oriented to time, oriented to situation Psychiatric exam: PRESENT: appropriate affect, normal mood. ABSENT: homicidal ideation, suicidal ideation Skin exam: PRESENT: dry, warm Results Laboratory Results: 04/20/20 06:07 04/23/20 21:30 04/23/20 21:30 Creatinine 0.72 Est GFR ( Amer) > 60 04/17/20 04/17/20 15:26 18:50 CK-MB (CK-2) 1.32 Troponin I 0.202 0.155 Impressions: Chest X-Ray 04/18/20 00:00 IMPRESSION: 1. Low lung volumes limits examination P Patchy multifocal areas of airspace disease and interstitial changes are suggested in the lungs. Assessment & Plan - Diagnosis (1) Pneumonia due to COVID-19 virus Is this a current diagnosis for this admission?: Yes (2) Diabetes mellitus type 2 in obese Is this a current diagnosis for this admission?: Yes (3) HTN (hypertension) Qualifiers: Hypertension type: essential hypertension Qualified Code(s): I10 - Essential (primary) hypertension Is this a current diagnosis for this admission?: Yes (4) HLD (hyperlipidemia) Qualifiers: Hyperlipidemia type: unspecified Qualified Code(s): E78.5 - Hyperlipidemia, unspecified Is this a current diagnosis for this admission?: Yes (6) Hx of glaucoma Is this a current diagnosis for this admission?: Yes - Time Time Spent with patient: 25-34 minutes Level of Care: IMCU Medications reviewed and adjusted accordingly: Yes Anticipated discharge: Home with Homehealth Within: Other - Inpatient Certification Based on my medical assessment, after consideration of the patient's comorbidities, presenting symptoms, or acuity I expect that the services needed warrant INPATIENT care.: Yes I certify that my determination is in accordance with my understanding of Medicare's requirements for reasonable and necessary INPATIENT services [42 CFR 412.3e].: Yes Medical Necessity: Significant Comorbidiites Make Outpatient Treatment Too Ri nirav, Need Close Monitoring Due to Risk of Patient Decompensation, Need For IV Fluids, Need For Continuous Telemetry Monitoring, Need for IV Antibiotics, Risk of Complication if Not Cared For in Hospital, Risk of Diagnosis Which Will Require Inpatient Eval/Care/Monitoring Post Hospital Care: D/C International Sourcing Manager Documentation - Plan Summary Plan Summary: Continue IV antibiotic therapy and Dexamethasone therapy. Obtain chest X ray, CRP, LDH, coagulation indices, CBC with diff, CMP in am. Decrease supplemental oxygen to 1L/min. Continue all other current medication management.
--- NOTE | 2020-04-24 19:01 | RADIOLOGY REPORT (SQ) ---
EXAM DESCRIPTION: CHEST SINGLE VIEW IMAGES COMPLETED DATE/TIME: 04/24/2020 5:29 pm REASON FOR STUDY: COVID Pneumonitis COMPARISON: 04/18/2020 EXAM PARAMETERS: NUMBER OF VIEWS: One view. TECHNIQUE: Single frontal radiographic view of the chest acquired. RADIATION DOSE: NA LIMITATIONS: None. FINDINGS: LUNGS AND PLEURA: There is improved aeration in the lungs. No focal consolidation or pleu ral effusion. No pneumothorax. MEDIASTINUM AND HILAR STRUCTURES: No masses. Contour normal. HEART AND VASCULAR STRUCTURES: Heart normal in size. Normal vasculature. BONES: No acute findings. HARDWARE: None in the chest. OTHER: No other significant finding. IMPRESSION: Improved aeration since previous examination. No acute cardiopulmonary disease. TECHNICAL DOCUMENTATION: JOB ID: [id number] 2010 [employer]- All Rights Reserved Reading location - IP/workstation name: [email or web address]
[2020-04-24] MEDS: INSULIN GLARGINE,HUM.REC.ANLOG 1,000 UNIT/10 ML VIAL SUBCUT SCH (22:20)
[2020-04-24] MEDS: ATORVASTATIN CALCIUM 20 MG TABLET PO SCH (22:21)
[2020-04-24] MEDS: MONTELUKAST SODIUM 10 MG TABLET PO SCH (22:22)
[2020-04-24] MEDS: LATANOPROST 0.005% OPH SOLN 2.5 ML OU SCH (22:25)
[2020-04-25 06:26] LABS: INTERNATIONAL RATION (INR) 1.11; PARTIAL THROMBOPLASTIN TIME 30.3 SEC (23.5-35.8); PROTHROMBIN TIME 14.3 SEC (11.4-15.4)
[2020-04-25 06:34] LABS: ALBUMIN 3.5 g/dL (3.5-5.0); ALKALINE PHOSPHATASE 70 U/L (38-126); ANION GAP 6 (5-19); ASPARTATE AMINO TRANSFERASE 23 U/L (14-36); BILIRUBIN,TOTAL 0.4 mg/dL (0.2-1.3); BLOOD UREA NITROGEN 19 mg/dL (7-20); CALCIUM 9.4 mg/dL (8.4-10.2); CARBON DIOXIDE 27 mmol/L (22-30); CHLORIDE 100 mmol/L (98-107); GLUCOSE 231 mg/dL (75-110); POTASSIUM 5.2 mmol/L (3.6-5.0); TOTAL PROTEIN 6.8 g/dL (6.3-8.2)
[2020-04-25 06:57] LABS: HEMATOCRIT 38.6 % (36.0-47.0); HEMOGLOBIN 13.1 g/dL (12.0-15.5); MEAN CORPUSCULAR HEMOGLOBIN 28.4 pg (27.0-33.4); MEAN CORPUSCULAR VOLUME 84 fl (80-97); PLATELET COUNT 387 10^3/uL (150-450); RED BLOOD COUNT 4.62 10^6/uL (3.72-5.28); RED CELL DISTRIBUTION WIDTH 13.2 % (11.5-14.0); WHITE BLOOD COUNT 10.6 10^3/uL (4.0-10.5)
[2020-04-25] MEDS: DEXAMETHASONE 4 MG TABLET PO SCH ×3 (07:00→22:21)
[2020-04-25] MEDS: HEPARIN SOD (PORCINE) 5,000 UNIT/ML 1 ML VIAL SUBCUT SCH ×3 (07:00→22:22)
[2020-04-25 07:05] LABS: ABSOLUTE MONOCYTES # (MANUAL) 0.3 10^3/uL (0.1-1.4); BAND NEUTROPHILS % (MANUAL) 1 % (3-5); BASOPHILS % (MANUAL) 0 % (0-2); EOSINOPHILS % (MANUAL) 0 % (0-6); LYMPHOCYTES % (MANUAL) 9 % (13-45); MONOCYTES % (MANUAL) 3 % (3-13); SEGMENTED NEUTROPHILS % (MAN) 87 % (42-78); TOTAL CELLS COUNTED 100
[2020-04-25 07:06] LABS: PLATELET COMMENT ADEQUATE; RBC MORPHOLOGY COMMENT NORMO-CYTIC/CHROMIC
[2020-04-25] MEDS: LOSARTAN POTASSIUM 50 MG TABLET PO SCH (09:03)
[2020-04-25] MEDS: ASCORBIC ACID 500 MG TABLET PO SCH (09:03)
[2020-04-25] MEDS: ZINC SULFATE 220 MG CAPSULE PO SCH (09:03)
[2020-04-25] MEDS: PANTOPRAZOLE SODIUM 40 MG TABLET.DR PO SCH (09:03)
[2020-04-25] MEDS: INSULIN LISPRO 100 UNIT/ML 3 ML VIAL SUBCUT SCH ×4 (09:03→22:23)
[2020-04-25] MEDS: BRIMONIDINE TARTRATE 0.2% OPH SOLN 5 ML OU SCH ×2 (09:04→17:02)
[2020-04-25] MEDS: TIMOLOL MALEATE 0.5% OPH SOLN 5 ML OU SCH ×2 (09:04→17:02)
[2020-04-25] MEDS: CEFEPIME 1 GM/D5W RTU 1 GM/50 ML RTUPB IV SCH ×2 (09:04→22:23)
[2020-04-25] MEDS: VANCOMYCIN HCL 1,000 MG in DEXTROSE 5%-WATER 250 ML IV SCH ×2 (09:05→22:30)
[2020-04-25] MEDS: LEVOFLOXACIN 750 MG/D5W RTU 750 MG/150 ML RTUPB IV SCH (12:05)
--- NOTE | 2020-04-25 17:59 | PDOC PROGRESS REPORT ---
Subjective Progress Note for:: 04/25/20 Subjective:: No chest pain or difficulty with breathing. No fever or chills. No nausea, vomiting or abdominal pain. Reason For Visit: COVID PNEUMONIA Physical Exam Vital Signs: Temp Pulse Resp BP Pulse Ox 98.6 F 92 19 152/71 H 97 04/25/20 16:08 04/25/20 16:08 04/25/20 16:08 04/25/20 16:08 04/25/20 16:08 Intake & Output 04/24/20 04/25/20 04/26/20 06:59 06:59 06:59 Intake Total 1270 1470 Balance 1270 1470 Weight 83 kg 83 kg Physical Exam: General appearance: PRESENT: no acute distress, obese Head exam: PRESENT: atraumatic, normocephalic Eye exam: PRESENT: conjunctiva pink. ABSENT: pallor, scleral icterus Mouth exam: PRESENT: moist Respiratory exam: PRESENT: clear to auscultation marielos Cardiovascular exam: PRESENT: RRR, +S1, +S2. ABSENT: diastolic murmur, rubs, systolic murmur GI/Abdominal exam: PRESENT: normal bowel sounds, soft. ABSENT: tenderness Extremities exam: ABSENT: pedal edema Musculoskeletal exam: PRESENT: ambulatory - within her room and participate in self care. Neurological exam: PRESENT: alert, awake, oriented to person, oriented to place, oriented to time, oriented to situation Psychiatric exam: PRESENT: appropriate affect, normal mood. ABSENT: homicidal ideation, suicidal ideation Skin exam: PRESENT: dry, warm Results Laboratory Results: 04/25/20 05:10 04/25/20 05:10 04/25/20 04/25/20 05:10 05:10 WBC 10.6 H RBC 4.62 Hgb 13.1 Hct 38.6 MCV 84 MCH 28.4 MCHC 34.0 RDW 13.2 Plt Count 387 Seg Neutrophils % Not Reportable Sodium 133.4 L Potassium 5.2 H Chloride 100 Carbon Dioxide 27 Anion Gap 6 BUN 19 Creatinine 0.69 Est GFR ( Amer) > 60 Glucose 231 H Calcium 9.4 Total Bilirubin 0.4 AST 23 Alkaline Phosphatase 70 Total Protein 6.8 Albumin 3.5 04/17/20 04/17/20 15:26 18:50 CK-MB (CK-2) 1.32 Troponin I 0.202 0.155 Impressions: Chest X-Ray 04/24/20 00:00 IMPRESSION: Improved aeration since previous examination. No acute cardiopulmonary disease. Assessment & Plan - Diagnosis (1) Pneumonia due to COVID-19 virus Is this a current diagnosis for this admission?: Yes (2) Diabetes mellitus type 2 in obese Is this a current diagnosis for this admission?: Yes (3) HTN (hypertension) Qualifiers: Hypertension type: essential hypertension Qualified Code(s): I10 - Essential (primary) hypertension Is this a current diagnosis for this admission?: Yes (4) HLD (hyperlipidemia) Qualifiers: Hyperlipidemia type: unspecified Qualified Code(s): E78.5 - Hyperlipidemia, unspecified Is this a current diagnosis for this admission?: Yes (6) Hx of glaucoma Is this a current diagnosis for this admission?: Yes - Time Time Spent with patient: 25-34 minutes Level of Care: IMCU Medications reviewed and adjusted accordingly: Yes Anticipated discharge: Home with Homehealth Within: Other - Inpatient Certification Based on my medical assessment, after consideration of the patient's comorbidities, presenting symptoms, or acuity I expect that the services needed warrant INPATIENT care.: Yes I certify that my determination is in accordance with my understanding of Medicare's requirements for reasonable and necessary INPATIENT services [42 CFR 412.3e].: Yes Medical Necessity: Significant Comorbidiites Make Outpatient Treatment Too Risky, Need Close Monitoring Due to Risk of Patient Decompensation, Need For IV Fluids, Need For Continuous Telemetry Monitoring, Need for IV Antibiotics, Risk of Complication if Not Cared For in Hospital, Risk of Diagnosis Which Will Require Inpatient Eval/Care/Monitoring Post Hospital Care: D/C Ironer Hand Documentation - Plan Summary Plan Summary: Continue current medication management. Start on trial off supplemental oxygen. Follow up on pending inflammatory makers.
[2020-04-25] MEDS: INSULIN GLARGINE,HUM.REC.ANLOG 1,000 UNIT/10 ML VIAL SUBCUT SCH (22:22)
[2020-04-25] MEDS: ATORVASTATIN CALCIUM 20 MG TABLET PO SCH (22:23)
[2020-04-25] MEDS: MONTELUKAST SODIUM 10 MG TABLET PO SCH (22:23)
[2020-04-25] MEDS: LATANOPROST 0.005% OPH SOLN 2.5 ML OU SCH (22:24)
[2020-04-26] MEDS: DEXAMETHASONE 4 MG TABLET PO SCH ×3 (05:40→21:31)
[2020-04-26] MEDS: HEPARIN SOD (PORCINE) 5,000 UNIT/ML 1 ML VIAL SUBCUT SCH ×3 (05:40→21:31)
--- NOTE | 2020-04-26 07:36 | EKG REPORT ---
SEVERITY:- ABNORMAL ECG - SINUS RHYTHM CONSIDER LEFT VENTRICULAR HYPERTROPHY : Confirmed by: Ramirez Rowe MD 26-Apr-2020 07:35:30
[2020-04-26] MEDS: INSULIN LISPRO 100 UNIT/ML 3 ML VIAL SUBCUT SCH ×4 (08:12→21:32)
[2020-04-26] MEDS: ZINC SULFATE 220 MG CAPSULE PO SCH (09:06)
[2020-04-26] MEDS: ASCORBIC ACID 500 MG TABLET PO SCH (09:06)
[2020-04-26] MEDS: PANTOPRAZOLE SODIUM 40 MG TABLET.DR PO SCH (09:07)
[2020-04-26] MEDS: LOSARTAN POTASSIUM 50 MG TABLET PO SCH (09:07)
[2020-04-26] MEDS: CEFEPIME 1 GM/D5W RTU 1 GM/50 ML RTUPB IV SCH ×2 (09:08→21:32)
[2020-04-26] MEDS: BRIMONIDINE TARTRATE 0.2% OPH SOLN 5 ML OU SCH ×2 (09:08→17:31)
[2020-04-26] MEDS: VANCOMYCIN HCL 1,000 MG in DEXTROSE 5%-WATER 250 ML IV SCH ×2 (09:08→22:29)
[2020-04-26] MEDS: TIMOLOL MALEATE 0.5% OPH SOLN 5 ML OU SCH ×2 (09:08→17:31)
[2020-04-26] MEDS: LEVOFLOXACIN 750 MG/D5W RTU 750 MG/150 ML RTUPB IV SCH (11:58)
[2020-04-26 12:51] LABS: C-REACTIVE PROTEIN < 5.0 mg/L (<10.0)
[2020-04-26] MEDS: FLUCONAZOLE 100 MG TABLET PO SCH (17:31)
--- NOTE | 2020-04-26 18:07 | PDOC PROGRESS REPORT ---
Subjective Progress Note for:: 04/26/20 Subjective:: Patient has been off supplemental oxygen since last clinical evaluation. She reported improvement in her energy level and participation in self care plan. No chest pain or difficulty with breathing. No fever or chills. No nausea, vomiting or abdominal pain. Patient reported vaginal itching and cheese like discharge which she described as her usual yeast infection. Reason For Visit: COVID PNEUMONIA Physical Exam Vital Signs: Temp Pulse Resp BP Pulse Ox 98.4 F 67 20 153/75 H 97 04/26/20 11:23 04/26/20 14:00 04/26/20 11:23 04/26/20 11:23 04/26/20 15:55 Intake & Output 04/25/20 04/26/20 04/27/20 06:59 06:59 06:59 Intake Total 1470 1800 250 Balance 1470 1800 250 Weight 83 kg 83 kg Physical Exam: General appearance: PRESENT: no acute distress, obese Head exam: PRESENT: atraumatic, normocephalic Eye exam: PRESENT: conjunctiva pink. ABSENT: pallor, scleral icterus Mouth exam: PRESENT: moist Respiratory exam: PRESENT: clear to auscultation marielos Cardiovascular exam: PRESENT: RRR, +S1, +S2. ABSENT: diastolic murmur, rubs, systolic murmur GI/Abdominal exam: PRESENT: normal bowel sounds, soft. ABSENT: tenderness Extremities exam: ABSENT: pedal edema Musculoskeletal exam: PRESENT: ambulatory - within her room and participate in self care. Neurological exam: PRESENT: alert, awake, oriented to person, oriented to place, oriented to time, oriented to situation Psychiatric exam: PRESENT: appropriate affect, normal mood. ABSENT: homicidal ideation, suicidal ideation Skin exam: PRESENT: dry, warm Results Laboratory Results: 04/25/20 05:10 04/25/20 05:10 04/26/20 11:50 C-Reactive Protein < 5.0 04/17/20 04/17/20 15:26 18:50 CK-MB (CK-2) 1.32 Troponin I 0.202 0.155 Impressions: Chest X-Ray 04/24/20 00:00 IMPRESSION: Improved aeration since previous examination. No acute cardiopulmonary disease. Assessment & Plan - Diagnosis (1) Pneumonia due to COVID-19 virus Is this a current diagnosis for this admission?: Yes (2) Diabetes mellitus type 2 in obese Is this a current diagnosis for this admission?: Yes (3) HTN (hypertension) Qualifiers: Hypertension type: essential hypertension Qualified Code(s): I10 - Essential (primary) hypertension Is this a current diagnosis for this admission?: Yes (4) HLD (hyperlipidemia) Qualifiers: Hyperlipidemia type: unspecified Qualified Code(s): E78.5 - Hyperlipidemia, unspecified Is this a current diagnosis for this admission?: Yes (6) Hx of glaucoma Is this a current diagnosis for this admission?: Yes - Time Time Spent with patient: 25-34 minutes Level of Care: IMCU Medications reviewed and adjusted accordingly: Yes Anticipated discharge: Home with Homehealth Within: Other - Inpatient Certification Based on my medical assessment, after consideration of the patient's comorbidities, presenting symptoms, or acuity I expect that the services needed warrant INPATIENT care.: Yes I certify that my determination is in accordance with my understanding of Medicare's requirements for reasonable and necessary INPATIENT services [42 CFR 412.3e].: Yes Medical Necessity: Significant Comorbidiites Make Outpatient Treatment Too Ri nirav, Need Close Monitoring Due to Risk of Patient Decompensation, Need For IV Fluids, Need For Continuous Telemetry Monitoring, Need for IV Antibiotics, Risk of Complication if Not Cared For in Hospital, Risk of Diagnosis Which Will Require Inpatient Eval/Care/Monitoring 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 Continue all other current medication management. Start on Diflucan 100 mg po daily for possible yeast vaginitis.
[2020-04-26] MEDS: INSULIN GLARGINE,HUM.REC.ANLOG 1,000 UNIT/10 ML VIAL SUBCUT SCH (21:31)
[2020-04-26] MEDS: ATORVASTATIN CALCIUM 20 MG TABLET PO SCH (21:32)
[2020-04-26] MEDS: MONTELUKAST SODIUM 10 MG TABLET PO SCH (21:32)
[2020-04-26] MEDS: LATANOPROST 0.005% OPH SOLN 2.5 ML OU SCH (22:30)
[2020-04-27] MEDS: HEPARIN SOD (PORCINE) 5,000 UNIT/ML 1 ML VIAL SUBCUT SCH ×3 (05:49→22:59)
[2020-04-27] MEDS: DEXAMETHASONE 4 MG TABLET PO SCH ×2 (05:50→15:40)
[2020-04-27] MEDS: PANTOPRAZOLE SODIUM 40 MG TABLET.DR PO SCH (05:50)
[2020-04-27] MEDS: ASCORBIC ACID 500 MG TABLET PO SCH (09:31)
[2020-04-27] MEDS: ZINC SULFATE 220 MG CAPSULE PO SCH (09:31)
[2020-04-27] MEDS: BRIMONIDINE TARTRATE 0.2% OPH SOLN 5 ML OU SCH ×2 (09:32→17:50)
[2020-04-27] MEDS: LOSARTAN POTASSIUM 50 MG TABLET PO SCH (09:32)
[2020-04-27] MEDS: TIMOLOL MALEATE 0.5% OPH SOLN 5 ML OU SCH ×2 (09:32→17:50)
[2020-04-27] MEDS: INSULIN LISPRO 100 UNIT/ML 3 ML VIAL SUBCUT SCH ×4 (09:33→23:00)
[2020-04-27] MEDS: CEFEPIME 1 GM/D5W RTU 1 GM/50 ML RTUPB IV SCH (12:49)
[2020-04-27] MEDS: VANCOMYCIN HCL 1,000 MG in DEXTROSE 5%-WATER 250 ML IV SCH (12:50)
[2020-04-27] MEDS: FLUCONAZOLE 100 MG TABLET PO SCH (17:49)
--- NOTE | 2020-04-27 21:39 | PDOC PROGRESS REPORT ---
Subjective Progress Note for:: 04/27/20 Subjective:: Patient denied any chest pain or difficulty with breathing. No need for supplemental oxygen in the last 24 hours. No fever or chills. No nausea, vomiting or abdominal pain. Reason For Visit: COVID PNEUMONIA Physical Exam Vital Signs: Temp Pulse Resp BP Pulse Ox 98.2 F 65 17 149/60 H 93 04/27/20 16:08 04/27/20 16:08 04/27/20 16:08 04/27/20 16:08 04/27/20 16:08 Intake & Output 04/26/20 04/27/20 04/28/20 06:59 06:59 06:59 Intake Total 1800 1230 Balance 1800 1230 Weight 83 kg Physical Exam: General appearance: PRESENT: no acute distress, obese Head exam: PRESENT: atraumatic, normocephalic Eye exam: PRESENT: conjunctiva pink. ABSENT: pallor, scleral icterus Mouth exam: PRESENT: moist Respiratory exam: PRESENT: clear to auscultation marielos Cardiovascular exam: PRESENT: RRR, +S1, +S2. ABSENT: diastolic murmur, rubs, systolic murmur GI/Abdominal exam: PRESENT: normal bowel sounds, soft. ABSENT: tenderness Extremities exam: ABSENT: pedal edema Musculoskeletal exam: PRESENT: ambulatory - within her room and participate in self care. Neurological exam: PRESENT: alert, awake, oriented to person, oriented to place, oriented to time, oriented to situation Psychiatric exam: PRESENT: appropriate affect, normal mood. ABSENT: homicidal ideation, suicidal ideation Skin exam: PRESENT: dry, warm Results Laboratory Results: 04/25/20 05:10 04/25/20 05:10 04/17/20 04/17/20 15:26 18:50 CK-MB (CK-2) 1.32 Troponin I 0.202 0.155 Impressions: Chest X-Ray 04/24/20 00:00 IMPRESSION: Improved aeration since previous examination. No acute cardiopulmonary disease. Assessment & Plan - Diagnosis (1) Pneumonia due to COVID-19 virus Is this a current diagnosis for this admission?: Yes (2) Diabetes mellitus type 2 in obese Is this a current diagnosis for this admission?: Yes (3) HTN (hypertension) Qualifiers: Hypertension type: essential hypertension Qualified Code(s): I10 - Essential (primary) hypertension Is this a current diagnosis for this admission?: Yes (4) HLD (hyperlipidemia) Qualifiers: Hyperlipidemia type: unspecified Qualified Code(s): E78.5 - Hyperlipidemia, unspecified Is this a current diagnosis for this admission?: Yes (6) Hx of glaucoma Is this a current diagnosis for this admission?: Yes - Time Time Spent with patient: 25-34 minutes Level of Care: IMCU Medications reviewed and adjusted accordingly: Yes Anticipated discharge: Home with Homehealth Within: Other - Inpatient Certification Based on my medical assessment, after consideration of the patient's c omorbidities, presenting symptoms, or acuity I expect that the services needed warrant INPATIENT care.: Yes I certify that my determination is in accordance with my understanding of Medicare's requirements for reasonable and necessary INPATIENT services [42 CFR 412.3e].: Yes Medical Necessity: Significant Comorbidiites Make Outpatient Treatment Too Risky, Need Close Monitoring Due to Risk of Patient Decompensation, Need For Continuous Telemetry Monitoring, Need for IV Antibiotics, Risk of Complication if Not Cared For in Hospital, Risk of Diagnosis Which Will Require Inpatient Eval/Care/Monitoring 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 D/C Dexamethasone. Continue all other curent medication management. If she continue to remain stable clinically she will be discharged home tomorrow with continue social distancing and other preventive methods.
[2020-04-27] MEDS: LATANOPROST 0.005% OPH SOLN 2.5 ML OU SCH (22:59)
[2020-04-27] MEDS: INSULIN GLARGINE,HUM.REC.ANLOG 1,000 UNIT/10 ML VIAL SUBCUT SCH (22:59)
[2020-04-27] MEDS: ATORVASTATIN CALCIUM 20 MG TABLET PO SCH (23:02)
[2020-04-27] MEDS: MONTELUKAST SODIUM 10 MG TABLET PO SCH (23:03)
[2020-04-28] MEDS: INSULIN LISPRO 100 UNIT/ML 3 ML VIAL SUBCUT SCH ×2 (08:08→12:31)
[2020-04-28] MEDS: HEPARIN SOD (PORCINE) 5,000 UNIT/ML 1 ML VIAL SUBCUT SCH ×2 (08:52→14:27)
[2020-04-28] MEDS: PANTOPRAZOLE SODIUM 40 MG TABLET.DR PO SCH (08:52)
[2020-04-28] MEDS: ZINC SULFATE 220 MG CAPSULE PO SCH (09:11)
[2020-04-28] MEDS: LOSARTAN POTASSIUM 50 MG TABLET PO SCH (09:11)
[2020-04-28] MEDS: ASCORBIC ACID 500 MG TABLET PO SCH (09:11)
[2020-04-28] MEDS: TIMOLOL MALEATE 0.5% OPH SOLN 5 ML OU SCH (09:13)
[2020-04-28] MEDS: BRIMONIDINE TARTRATE 0.2% OPH SOLN 5 ML OU SCH (09:14)
[2020-04-28 14:52] VITALS: BP 158/70
== END 2020-04-28 16:52 | disposition home or self-care (01) | DRG 177 ==
LOC: ER 12:53 → EH 19:19 → 3N 22:45
PROVIDERS: ADMIT Internal Medicine Geriatric Medicine; ATTEND Internal Medicine Geriatric Medicine
PROC: 5A09557 Assistance with Respiratory Ventilation, Greater than 96 Consecutive Hours, Continuous Positive Airway Pressure (ICD-10-PCS; principal; 2020-04-18)
DX: U07.1 COVID-19 (principal); J12.89 Other viral pneumonia; I10 Essential (primary) hypertension; E11.9 Type 2 diabetes mellitus without complications; E78.5 Hyperlipidemia, unspecified; K21.9 Gastro-esophageal reflux disease without esophagitis; G44.89 Other headache syndrome; M19.90 Unspecified osteoarthritis, unspecified site; H40.9 Unspecified glaucoma; Z90.710 Acquired absence of both cervix and uterus; Z79.82 Long term (current) use of aspirin; Z79.4 Long term (current) use of insulin; Z88.5 Allergy status to narcotic agent; Z88.2 Allergy status to sulfonamides
CPT/HCPCS: 36415; 71045; 80053; 80202; 82553; 82565; 82962; 83605; 83615; 83735; 84145; 84484; 85025; 85379; 85610; 85652; 85730; 86140; 87040; 87635; 93005; 93010; 94660; 96365; 99285; C9803; J0692; J0696; J1644; J1650; J1815; J1956; J3370; J3490; J7060; J8540

== ENCOUNTER → 2020-06-01 | Outpatient (CLI) | payer MEDICARE ==
--- NOTE | 2020-06-01 15:15 | WOMENS IMAGING REPORT ---
EXAM DESCRIPTION: 3D SCREENING MAMMO BILAT IMAGES COMPLETED DATE/TIME: 06/01/2020 2:37 pm REASON FOR STUDY: ROUTINE SCREENING MAMMOGRAM Z12.31 Z12.31 ENCNTR SCREEN MAMMOGRAM FOR MALIGNANT N EOPLASM OF KARRI COMPARISON: [id number] EXAM PARAMETERS: Views: Standard craniocaudal and mediolateral oblique views of each breast recorded using digital acquisition and breast tomosynthesis. Read with the assistance of CAD. .[facility] - [employer] Operator Version 9.2 LIMITATIONS: None. FINDINGS: No suspicious masses, suspicious calcifications or architectural distortion. No areas of c oncern. IMPRESSION: NEGATIVE MAMMOGRAM. BIRADS 1. BREAST DENSITY: b. There are scattered areas of fibroglandular density. BIRAD: ASSESSMENT: 1 NEGATIVE RECOMMENDATION: ROUTINE SCREENING COMMENT: The patient has been notified of the results by letter per MQSA requirements. Additional no tification policies are in place for contacting patient with suspicious or incomplete findings. Quality ID #[id number]: [employer] [place] [employer] recommends an annual screening mammogram for women aged 40 years or over. This facility utilizes a reminder system to ensure that all patients receive reminder letters, and/or direct phone calls for appointments. This includes reminders for routine scr eening mammograms, diagnostic mammograms, or other Breast Imaging Interventions when appropriate. Th is patient will be placed in the appropriate reminder system. TECHNICAL DOCUMENTATION: FINDING NUMBER: (1) ASSESSMENT: (1) JOB ID: [id number] 2010 [employer]- All Rights Reserved Reading location - IP/workstation name: [email or web address]
== END ==
LOC: WI 14:10
PROVIDERS: ATTEND Internal Medicine Geriatric Medicine
DX: Z12.31 Encounter for screening mammogram for malignant neoplasm of breast (principal)
CPT/HCPCS: 77063; 77067